=== PATIENT | male | born 1955 | race African-American/Black ===

== ENCOUNTER 2020-11-11 09:04 | Emergency (ER) | payer BC, SELFPAY ==
[2020-11-11] VITALS (27 sets, daily range): BP systolic 137–182; BP diastolic 94–121; PULSE 81–119; RESP 10–22; TEMP 37; O2SAT 82–100
--- NOTE | ~2020-11-11 | CT_ITS ---
EXAMINATION: CT abdomen pelvis wo con EXAM DATE: 11/11/2020 11:13 INDICATION: Small bowel obstruction. Nausea and vomiting. TECHNIQUE: Spiral CT of the abdomen and pelvis was performed without contrast. Axial, coronal and s agittal images of the abdomen and pelvis were reviewed. The dose-length product (DLP) for this exami nation was 505.87 mGy-cm. The exposure was tailored according to patient size (auto mA exposure cont rol), and iterative reconstruction (ASIR) was used as additional dose reduction technique. There is no prior study for comparison. FINDINGS: Mild nonspecific fat stranding surrounding the adrenal glands and kidneys. No nephrolithias is or hydronephrosis. There is a 1 cm left liver lobe cyst. The liver, spleen, adrenal glands and ruby creas are otherwise unremarkable. Gallbladder is unremarkable. No biliary obstruction. Prostate is moderately enlarged measuring 5.5 cm. Small bilateral inguinal fat-containing hernias. Tiny umbilical fat-containing hernia. The bladder is unremarkable. There is no retroperitoneal or pelvic lymphad enopathy. There is mild scattered arteriosclerotic disease. The appendix is normal. There is mild sigmoid colonic diverticulosis. There is no adjacent inflammat ory change to suggest diverticulitis. The stomach and small bowel are unremarkable. There is expect ed amount of colonic stool. No free intraperitoneal gas. The heart is normal in size. There are no pericardial or pleural effusions. Small amount of basilar intralobular septal thickening, possibl e mild interstitial lung disease. There is bibasilar linear subsegmental atelectasis. There are no o steoblastic or osteolytic lesions identified. IMPRESSION: 1. No acute intra-abdominal findings. 2. Mild nonspecific perirenal and periadrenal fat stranding. 3. Small fat-containing hernias. 4. Moderate prostatomegaly. 5. Possible mild interstitial lung disease. Reviewed, dictated and finalized at location A.
[2020-11-11 09:49] LABS: Basophils Percent Auto 0.3 % (0.2-1.2); Hematocrit 46.1 % (42.0-52.0); Hemoglobin 14.8 g/dL (14.0-18.0); Immature Granulocyte Absolute 0.03 K/mm3 (0.00-0.031); Immature Granulocyte Percent A 0.4 % (0-0.5); Immature Platelet Fraction Pct 9.5 % (0.9-11.2); Lymphocytes Absolute Auto 0.71 K/mm3 (0.9-3.2); Lymphocytes Percent Auto 9.6 % (18.3-44.2); Mean Corpuscular HGB Conc 32.1 g/dl (32-36); Mean Corpuscular Hemoglobin 21.1 pg (26-34); Mean Corpuscular Volume 65.6 fl (80-100); Monocytes Absolute Auto 0.6 K/mm3 (0.1-0.6); Monocytes Percent Auto 8.1 % (2.6-8.5); Neutrophils Percent Auto 81.6 % (45.5-73.1); Platelet Count Result 286 k/mm3 (150-375); Red Blood Count 7.03 M/mm3 (4.6-6.20); Red Cell Distribution Width 18.5 % (11.5-14.5); White Blood Count 7.4 K/mm3 (4.5-10.0)
[2020-11-11 10:02] LABS: Alanine Aminotransferase 20 U/L (4-50); Albumin Level 4.8 g/dL (3.5-5.1); Alkaline Phosphatase 83 U/L (38-126); Anion Gap 13 mmol/L (8-16); Aspartate Amino Transferase 21 U/L (17-59); Bilirubin,Total 0.9 mg/dL (0.2-1.3); Blood Urea Nitrogen 20 mg/dL (9-20); Calcium 9.1 mg/dL (8.4-10.2); Carbon Dioxide 26 mmol/L (22-30); Chloride 98 mmol/L (98-107); Estimated CRCL calculation 61 ml/min; Estimated Glomerular Filt Rate > 60; Glucose 220 mg/dL (75-110); Lipase 134 U/L (23-300); Potassium 3.2 mmol/L (3.4-5.0); Sodium 137 mmol/L (137-145)
[2020-11-11] MEDS: LABETALOL HCL INJ 100 MG/20 ML VIAL 20 MG IV PUSH ×2 (10:32→14:01)
[2020-11-11] MEDS: LACTATED RINGERS 1,000 ML 999 ML IV CONT (10:33)
[2020-11-11] MEDS: ONDANSETRON INJ 4 MG/2 ML VIAL (10:37)
[2020-11-11 11:05] LABS: Add Urine Microscopic? YES; Appearance Urine Clear (Clear); Bilirubin Urine Negative (Negative); Blood Urine 1+ (Negative); Color Urine Yellow (Yellow); Glucose Urine UA 3+ mg/dL (Negative); Ketones Urine 1+ mg/dL (Negative); Leukocyte Esterase Ur Negative LEU/UL (Negative); Mucus Urine Rare /lpf; Nitrate Urine Negative (Negative); Protein Urine 3+ mg/dL (Negative); Specific Grav Ur 1.021 (1.001-1.035); Squamous Epithelial Cell Urine Rare /hpf (Few); Urobilinogen Urine Negative mg/dL (<2.0)
--- NOTE | 2020-11-11 11:15 | ED.NAVMDI ---
HPI - Nausea/Vomiting/Diarrhea General Chief complaint: Nausea/Vomiting/Diarrhea Stated complaint: n/v Time Seen by Provider: 11/11/20 09:52 Source: patient Mode of arrival: ambulatory Limitations: no limitations History of Present Illness HPI Narrative: 65-year-old male Patient reports that he had upper and lower endoscopies elsewhere last week He says a colonoscopy was because of a possibly precancerous polyp that they were following up and it sounds like the upper was done because he just has occasional bloating and may be a sensitive stomach Following the procedures he complains of continued nausea, bloating, poor appetite, unable to keep his pills down Which unfortunately includes several antihypertensives including amlodipine hydralazine and losartan In talking with he and his daughter it sounds like his blood pressure control is somewhat of a ongoing work in progress with his primary as well Related Data Home Medications Medication Instructions Recorded Confirmed amlodipine 10 mg PO DAILY 11/11/20 11/11/20 carvedilol 25 mg PO DAILY 11/11/20 11/11/20 glipizide 5 mg PO BID 11/11/20 11/11/20 hydralazine 50 mg PO BID 11/11/20 11/11/20 losartan-hydrochlorothiazide 1 tablet PO DAILY 11/11/20 11/11/20 metformin 1,500 mg PO DAILY 11/11/20 11/11/20 Allergies Allergy/AdvReac Type Severity Reaction Status Date / Time No Known Allergies Allergy Verified 11/11/20 09:09 Review of Systems Review of Systems: All systems reviewed & are unremarkable except as noted in HPI and below Constitutional: Constitutional: Reports no additional constitutional complaints, Denies chills, Reports fatigue, Denies fever(s), Denies headache(s) and Reports weakness Eyes: Eyes: Reports no additional eye complaints, Denies change in vision and Reports photophobia ENT: Denies vertigo and Denies headache(s) Cardiovascular: Cardiovascular: Denies chest pain and Denies dyspnea Respiratory: Respiratory: Denies cough and Denies dyspnea Gastrointestinal: Gastrointestinal: Reports abdominal pain, Reports bloating, Denies diarrhea, Reports nausea and Reports vomiting Genitourinary: Genitourinary: Denies dysuria and Denies urinary frequency Musculoskeletal: Musculoskeletal: Reports myalgias, Denies deformity, Denies arthralgias, Denies joint swelling and Denies numbness Integumentary/Breasts: Skin/Breast: Denies rash and Denies wounds Neurologic: Denies headache(s), Denies focal weakness and Denies numbness Comments: Headache Psychiatric: Psychiatric: Reports no additional psychiatric complaints Endocrine: Endocrine: Reports no additional endocrine complaints Hematologic/Lymphatic: Hematologic/Lymphatic: Reports no additional hematologic/lymphatic complaints Allergic/Immunologic: Allergic/Immunologic: Reports no additional allergic/immunologic complaints [facility] Social History Social History Gender identity (if verbalized by the patient): Male Exam Const: General: cooperative, no acute distress and alert Orientation/consciousness: patient oriented x3 (alert) HENMT: Head: normal to inspection, normocephalic and atraumatic Ears: external ears normal General nose exam: no epistaxis Neck: Neck: normal visual inspection, supple and no JVD Other: Supple Resp: Effort & Inspection: normal respiratory effort and not labored Auscultation: clear to auscultation bilaterally and other (BS =) Cardio: Rate: regular rate Rhythm: regular rhythm Heart sounds: no murmurs GI: GI Palp: Yes Soft to palpation, No Guarding due to palpation present (GI), No Rigid due to palpation and No Rebound tenderness present Skin: General skin exam: normal color and no rashes or lesions noted Neuro: General: patient oriented x3 (alert) and moves all extremities Speech: normal speech Extrem: General: normal to inspection and no pedal edema Psych: Affect: normal affect Course Course Emergency Course
--- NOTE | 2020-11-11 11:20 | ECG_ITS ---
Measurements Intervals [place] Rate: 87 P: 50 [place]: 156 QRS: 54 QRSD: 94 T: -5 QT: 347 QTc: 418 Interpretive Statements SINUS RHYTHM WITH MARKED SINUS ARRHYTHMIA BORDERLINE ST-T WAVE ABNORMALITY- ANT/INF LEADS BORDERLINE ECG Electronically Signed On 11-11-2020 14:30:32 CDT by Toni Lee D.O.
[2020-11-11] MEDS: hydrALAZINE HCL 20 MG/ML VIAL 10 MG IV PUSH ×2 (11:43→15:49)
[2020-11-11] MEDS: amLODIPine BESYLATE 5 MG TABLET 10 MG PO (11:43)
[2020-11-11] MEDS: ENALAPRILAT 1.25 MG/ML VIAL IV PUSH (12:43)
[2020-11-11 13:12] LABS: Troponin I < 0.012 ng/mL (0.000-0.034)
[2020-11-11 13:30] LABS: Troponin I < 0.012 ng/mL (0.000-0.034)
[2020-11-11] MEDS: PROCHLORPERAZINE EDISYLATE 10 MG/2 ML VIAL IV PUSH (15:49)
[2020-11-11] MEDS: POTASSIUM CHLORIDE 20 MEQ TABLET 40 MEQ PO (16:29)
[2020-11-11] MEDS: LABETALOL HCL INJ 100 MG/20 ML VIAL 40 MG IV PUSH (16:47)
== END 2020-11-11 17:00 | disposition home or self-care (01) ==
PROVIDERS: Emergency Provider Emergency Medicine; PCP Family Medicine
DX: R11.2 Nausea with vomiting, unspecified (principal); I10 Essential (primary) hypertension; Z79.84 Long term (current) use of oral hypoglycemic drugs
CPT/HCPCS: 36415; 74176; 80053; 81001; 83690; 84484; 85025; 85055; 93005; 96361; 96374; 96375; 96376; 99284; A9270; J0360; J0780; J2405; J7120

== ENCOUNTER 2021-10-02 15:40 | Outpatient (CLI) | payer OTHER, SELFPAY ==
--- NOTE | ~2021-10-02 | US_ITS ---
EXAMINATION: US renal BI EXAM DATE: 10/02/2021 16:21 INDICATION: Serum Creatinine Abnormal . TECHNIQUE: Multiple grayscale and Doppler images of the kidneys were obtained (by a technologist who performed the scan) and subsequently reviewed. There is no prior study for comparison. FINDINGS: Right kidney: There is normal contour and echogenicity. It measures 10.2 x 5.1 x 5.8 centimeters. T here are no focal renal lesions identified. There is no hydronephrosis. Left kidney: There is normal contour and echogenicity. It measures 11.2 x 4.9 x 5.1 centimeters. Th ere are no focal renal lesions identified. There is no hydronephrosis. Bladder unremarkable. There is prostatomegaly, prostate measuring up to 5.8 cm. IMPRESSION: 1. Sonographically unremarkable kidneys. 2. Moderate prostatomegaly. Reviewed, dictated and finalized at location B. ER MANAGER
== END 2021-10-02 15:41 | disposition home or self-care (01) ==
LOC: ANHIMG 15:53
PROVIDERS: PCP Family Medicine; Visit Provider Internal Medicine Nephrology
DX: R79.89 Other specified abnormal findings of blood chemistry (principal); R80.8 Other proteinuria; N40.0 Benign prostatic hyperplasia without lower urinary tract symptoms
CPT/HCPCS: 76775

== ENCOUNTER 2022-05-21 09:44 | Outpatient (CLI) | payer OTHER, SELFPAY ==
[2022-05-21 18:44] LABS: Alanine Aminotransferase 16 U/L (6-50); Albumin Level 4.7 g/dL (3.5-5.1); Alkaline Phosphatase 63 U/L (38-126); Anion Gap 13 mmol/L (8-16); Aspartate Amino Transferase 16 U/L (17-59); Basophils Absolute Auto 0.1 K/mm3 (0.0-0.1); Basophils Percent Auto 1.3 % (0.2-1.2); Bilirubin,Total 0.7 mg/dL (0.2-1.3); Blood Urea Nitrogen 24 mg/dL (9-20); Calcium 9.6 mg/dL (8.4-10.2); Carbon Dioxide 24 mmol/L (22-30); Chloride 106 mmol/L (98-107); Eosinophils Absolute Auto 0.4 K/mm3 (0-0.3); Eosinophils Percent Auto 6.4 % (0-4.4); Estimated Glomerular Filt Rate 46; Glucose 157 mg/dL (65-110); Hematocrit 42.6 % (42.0-52.0); Hemoglobin 12.7 g/dL (14.0-18.0); Immature Granulocyte Absolute 0.02 K/mm3 (0.00-0.031); Immature Granulocyte Percent A 0.3 % (0-0.5); Lymphocytes Absolute Auto 1.16 K/mm3 (0.9-3.2); Lymphocytes Percent Auto 17.2 % (18.3-44.2); Mean Corpuscular HGB Conc 29.8 g/dl (32-36); Mean Corpuscular Hemoglobin 20.7 pg (26-34); Mean Corpuscular Volume 69.5 fl (80-100); Mean Platelet Volume 10.8 fl (7.4-10.4); Monocytes Absolute Auto 0.7 K/mm3 (0.1-0.6); Monocytes Percent Auto 9.8 % (2.6-8.5); Neutrophils Absolute Auto 4.4 K/mm3 (1.3-6.7); Platelet Count Result 264 k/mm3 (150-375); Potassium 3.8 mmol/L (3.4-5.0); Red Blood Count 6.13 M/mm3 (4.6-6.20); Red Cell Distribution Width 19.6 % (11.5-14.5); Sodium 143 mmol/L (137-145); White Blood Count 6.8 K/mm3 (4.5-10.0)
[2022-05-21 19:02] LABS: Vitamin D 25 Hydroxy 90.5 ng/mL
[2022-05-21 20:00] LABS: Hypochromasia 1+ (NORMAL); Platelet Estimate Adequate (Adequate)
[2022-05-21 20:01] LABS: Anisocytosis 2+ (NORMAL)
[2022-05-21 20:02] LABS: Schistocytes None Seen (NORMAL)
[2022-05-22 14:27] LABS: Hemoglobin A1C 7.2 % (<5.7)
== END 2022-05-21 09:45 | disposition home or self-care (01) ==
LOC: ANHGOSHLAB 09:47
PROVIDERS: PCP Family Medicine; Visit Provider Family Medicine
DX: E11.9 Type 2 diabetes mellitus without complications (principal); E55.9 Vitamin D deficiency, unspecified; E53.8 Deficiency of other specified B group vitamins; Z79.899 Other long term (current) drug therapy; N18.30 Chronic kidney disease, stage 3 unspecified; I10 Essential (primary) hypertension; D64.9 Anemia, unspecified
CPT/HCPCS: 36415; 80053; 82306; 82607; 83036; 85025; 85055

== ENCOUNTER → 2022-05-21 10:07 | Outpatient (CLI) | payer OTHER, SELFPAY ==
--- NOTE | ~2022-05-21 | US_ITS ---
EXAMINATION: US thyroid DATE: 05/21/2022 10:21 INDICATION: Nontoxic single thyroid nodule. Goiter. TECHNIQUE: Multiple ultrasound images of the thyroid were obtained. COMPARISON: Chest CT 09/19/2008 FINDINGS: The right thyroid lobe measures 4.3 x 1.6 x 1.5 cm. The left thyroid lobe measures 4.1 x 1.6 x 1.5 c m. In the right thyroid lobe, there is a 19 mm solid, hypoechoic, wider than tall nodule with smooth margin without echogenic foci (TI-RADS TR4). IMPRESSION: 1. Right thyroid nodule. Ultrasound-guided fine-needle aspiration is recommended. Reviewed, dictated and finalized at location B. IMPRESSION: 1. Right thyroid nodule. Ultrasound-guided fine-needle aspiration is recommende d.
== END ==
PROVIDERS: PCP Family Medicine; Visit Provider Family Medicine
DX: E04.1 Nontoxic single thyroid nodule (principal)
CPT/HCPCS: 76536

== ENCOUNTER 2022-08-12 11:11 | Outpatient (CLI) | payer OTHER, SELFPAY ==
[2022-08-12 16:58] LABS: Total Protein Urine Random 30 mg/dL
[2022-08-12 17:29] LABS: Albumin Level 4.6 g/dL (3.5-5.1); Anion Gap 9 mmol/L (8-16); Blood Urea Nitrogen 26 mg/dL (9-20); Carbon Dioxide 25 mmol/L (22-30); Chloride 101 mmol/L (98-107); Estimated Glomerular Filt Rate 46; Glucose 175 mg/dL (65-110); Phosphorus 3.8 mg/dL (2.5-4.5); Potassium 3.6 mmol/L (3.4-5.0); Sodium 135 mmol/L (137-145)
== END 2022-08-12 11:12 | disposition home or self-care (01) ==
LOC: ANHWCLAB 11:12
PROVIDERS: PCP Family Medicine; Visit Provider Internal Medicine Nephrology
DX: N18.32 Chronic kidney disease, stage 3b (principal); I12.9 Hypertensive chronic kidney disease with stage 1 through stage 4 chronic kidney disease, or unspecified chronic kidney disease; E11.22 Type 2 diabetes mellitus with diabetic chronic kidney disease; R80.9 Proteinuria, unspecified
CPT/HCPCS: 36415; 80069; 81050; 84156

== ENCOUNTER 2022-11-24 10:39 | Outpatient (CLI) | payer OTHER, SELFPAY ==
[2022-11-24 18:48] LABS: Alanine Aminotransferase 19 U/L (6-50); Albumin Level 4.8 g/dL (3.5-5.1); Alkaline Phosphatase 71 U/L (38-126); Anion Gap 10 mmol/L (8-16); Aspartate Amino Transferase 37 U/L (17-59); Blood Urea Nitrogen 25 mg/dL (9-20); Calcium 9.6 mg/dL (8.4-10.2); Carbon Dioxide 29 mmol/L (22-30); Chloride 102 mmol/L (98-107); Cholesterol 207 mg/dL (0-200); Estimated Glomerular Filt Rate 43; Glucose 117 mg/dL (65-110); HDL Direct 35 mg/dL; Potassium 3.8 mmol/L (3.4-5.0); Sodium 141 mmol/L (137-145); Triglycerides 137 mg/dL (<150)
[2022-11-24 18:59] LABS: LDL Cholesterol Direct 128 mg/dL
[2022-11-24 19:17] LABS: Prostate Specific Antigen 2.2 ng/mL (< OR = 4.0)
[2022-11-24 19:25] LABS: Vitamin D 25 Hydroxy 73.5 ng/mL
[2022-11-24 19:31] LABS: Basophils Absolute Auto 0.1 K/mm3 (0.0-0.1); Basophils Percent Auto 1.3 % (0.2-1.2); Eosinophils Absolute Auto 0.5 K/mm3 (0-0.3); Hematocrit 45.4 % (42.0-52.0); Hemoglobin 13.8 g/dL (14.0-18.0); Immature Granulocyte Absolute 0.02 K/mm3 (0.00-0.031); Immature Granulocyte Percent A 0.3 % (0-0.5); Immature Platelet Fraction Pct 11.2 % (0.9-11.2); Lymphocytes Absolute Auto 1.15 K/mm3 (0.9-3.2); Lymphocytes Percent Auto 17.2 % (18.3-44.2); Mean Corpuscular HGB Conc 30.4 g/dl (32-36); Mean Corpuscular Volume 69.2 fl (80-100); Monocytes Absolute Auto 0.9 K/mm3 (0.1-0.6); Neutrophils Absolute Auto 4.1 K/mm3 (1.3-6.7); Neutrophils Percent Auto 61.2 % (45.5-73.1); Platelet Count Result 264 k/mm3 (150-375); Red Blood Count 6.56 M/mm3 (4.6-6.20); Red Cell Distribution Width 20.9 % (11.5-14.5); White Blood Count 6.7 K/mm3 (4.5-10.0)
[2022-11-24 19:38] LABS: Creatinine Urine 176.4 mg/dL
[2022-11-24 19:41] LABS: Microalbumin Urine Random 153.4 mg/L (0-16.7)
[2022-11-24 20:10] LABS: Hemoglobin A1C 6.9 % (<5.7)
[2022-11-24 20:31] LABS: Platelet Estimate Adequate (Adequate)
[2022-11-24 20:32] LABS: Hypochromasia 1+ (NORMAL); Ovalocytes 1+ (NORMAL); Schistocytes None Seen (NORMAL); Target Cells 1+ (NORMAL)
== END 2022-11-24 10:40 | disposition home or self-care (01) ==
LOC: ANHGOSHLAB 10:40
PROVIDERS: PCP Family Medicine; Visit Provider Family Medicine
DX: E78.5 Hyperlipidemia, unspecified (principal); G25.2 Other specified forms of tremor; E04.1 Nontoxic single thyroid nodule; Z12.5 Encounter for screening for malignant neoplasm of prostate; E55.9 Vitamin D deficiency, unspecified; E53.8 Deficiency of other specified B group vitamins; E11.9 Type 2 diabetes mellitus without complications; I10 Essential (primary) hypertension
CPT/HCPCS: 36415; 80053; 80061; 82043; 82306; 82607; 83036; 84153; 84443; 85025; 85055; G0103

== ENCOUNTER 2022-12-11 10:26 | Emergency (ER) | payer OTHER, SELFPAY ==
[2022-12-11] VITALS (25 sets, daily range): BP systolic 126–172; BP diastolic 92–101; PULSE 71–84; RESP 13–23; TEMP 36.6; O2SAT 95–100
--- NOTE | ~2022-12-11 | XR_ITS ---
EXAMINATION: XR chest 2V 12/11/2022 11:06 INDICATION: Chest tightness PROCEDURE: 2 view chest COMPARISON: 09/18/2015 FINDINGS: The lungs are clear. The cardiomediastinal silhouette is within normal limits. There are no pleural effusions. There is no pneumothorax suspected. IMPRESSION: 1: NO ACUTE CARDIOPULMONARY DISEASE. Reviewed, dictated and finalized at location L.
--- NOTE | ~2022-12-11 | CT_ITS ---
EXAMINATION: CTA chest PE protocol DATE: 12/11/2022 12:19 CDT INDICATION: CT dated 09/19/2008 TECHNIQUE: Computed tomographic angiography (CTA) of the chest was performed with 100 mL Omnipaque-35 0 intravenous contrast. The dose-length product was 594.39 mGy-cm. Maximum intensity projection 3D-re constructions of the aorta and other arteries were constructed by the technologist on a separate work station. Automated exposure control and iterative reconstruction technique were employed. COMPARISON: CT dated 09/19/2008. FINDINGS: Study is technically adequate without evidence for pulmonary embolism. No thoracic lymphade nopathy. There is a hypodense 2.4 cm right thyroid mass. Recommend correlation with ultrasound. There are calcified granulomas of the spleen. No significant pleural or pericardial effusion. There is nisha ateral adrenal thickening, likely benign hyperplasia. No endobronchial lesions. There is dependent at electasis. There is bandlike consolidation in the right lower lobe, most likely atelectasis. There is lingular atelectasis. No pneumothorax. Mild thoracic spondylosis. IMPRESSION: 1. No evidence for pulmonary embolism. 2: Right lower lobe and lingular atelectasis. 3: Right thyroid mass measuring 2.4 cm. Correlation with thyroid ultrasound recommended. Reviewed, dictated and finalized at location L. IMPRESSION: 1. No evidence for pulmonary embolism. 2: Right lower lobe and lingular atelectasis. 3: Right thyroid mass measuring 2.4 cm. Correlation with thyroid ultrasound rec ommended.
--- NOTE | 2022-12-11 10:28 | ECG_ITS ---
Measurements Intervals [place] Rate: 73 P: 12 MS: 135 QRS: 23 QRSD: 88 T: 6 QT: 365 QTc: 403 Interpretive Statements SINUS RHYTHM BORDERLINE T WAVE ABNORMALITY- INFERIOR LEADS BASELINE ARTIFACT- I, II, III, AVR BORDERLINE ECG COMPARED TO ECG 11/11/2020 11:54:06 NO SIGNIFICANT CHANGES Electronically Signed On 12-11-2022 11:19:45 CDT by Toni Lee D.O.
--- NOTE | 2022-12-11 10:41 | ED.CHESTPAIN ---
HPI - Chest Pain General Chief Complaint: Chest Pain Stated Complaint: near syncope, chest pain Time Seen by Provider: 12/11/22 10:40 Source: patient and old records reviewed Mode of arrival: ambulatory Limitations: no limitations History of Present Illness HPI narrative: Patient is a 67 y/o male who presents to the ED with c/o chest tightness. Patient reports having upper respiratory symptoms including cough, chest and nasal congestion, rhinorrhea, sneezing for the last 4 days. He states he has had intermittent chest tightness related to the chest congestion over the last few days. He went to see his primary care doctor today and reports he suddenly became very fatigued, clammy, flushed, diaphoretic. He states he laid down on the table in the office and began to feel better after approximately 15 minutes. He did report having worsening chest tightness during that time, which is still present. EKG was read in the office and no signs of STEMI. Patient denied feeling dizzy or lightheaded at that time. He did not pass out. Denied nausea or difficulty breathing. He was then referred to the ED for further evaluation. Patient denies any recent fevers, abdominal pain, difficulty breathing, lower extremity pain or swelling. Related Data Allergies Allergy/AdvReac Type Severity Reaction Status Date / Time No Known Allergies Allergy Verified 12/11/22 09:30 Review of Systems Review of Systems: CONSTITUTIONAL: Denies fever, chills, or sweats. ENT: See HPI. CARDIOVASCULAR: See HPI. RESPIRATORY: See HPI. GASTROINTESTINAL: Denies abdominal pain, nausea, vomiting, or diarrhea. GENITOURINARY: Denies dysuria or hematuria. MUSCULOSKELETAL: Denies back pain, joint pain, or myalgia. NEUROLOGIC: See HPI. All systems reviewed & are unremarkable except as noted in HPI and below PMFSH Past Medical History Medical History CKD (chronic kidney disease) stage 3, GFR 30-59 ml/min Erectile dysfunction Essential (primary) hypertension Intention tremor Type 2 diabetes mellitus without complications Vitamin B12 deficiency Vitamin D deficiency Surgical History Surgical History No pertinent past surgical history Family History Family History Mother Hypertension Heart disease Sibling Diabetes mellitus Social History Social History Smoking status: Current some day smoker Tobacco type: cigars (2/month) Alcohol intake: current Alcohol use details: occasionnally Substance use: never Substance use type: does not use Lack of Transportation: No Lack of Food: Sometimes True Current Housing: I Have Housing Concerned About Future Housing: No Difficulty Paying Gas/Electric Bills: No Difficulty Paying for Meds: YES Currently Unemployed: No Education: High School Diploma/GED Difficulty w/ Childcare or Family Care: No Living arrangements: with family Occupation/Education: retired Gender identity (if verbalized by the patient): Male Sexual Orientation (if Verbalized by the Patient): Straight or Heterosexual Spiritual care concerns: No Agree to blood products: Yes Exam Narrative: GENERAL: Well appearing, well-nourished, non-toxic, in no acute distress. HEAD: Normocephalic, atraumatic. EYES: PERRLA/EOMI, conjunctiva clear. ENT: MMs somewhat dry. Nasal quality to voice. NECK: Supple. No adenopathy, no masses. RESPIRATORY: Airway patent, respirations nonlabored. Clear to auscultation bilaterally, no rales, rhonchi, wheezing. Coarse lung sounds in bases bilaterally, equal bilaterally, no focal lung sounds. CARDIOVASCULAR: Regular rate and rhythm without murmurs, rubs, or gallops. Radial pulses 2+ and equal bilaterally. ABDOMINAL: Soft, nontender, nondistended, no hepatosplenom
[2022-12-11 10:57] LABS: Basophils Absolute Auto 0.1 K/mm3 (0.0-0.1); Eosinophils Absolute Auto 0.5 K/mm3 (0-0.3); Eosinophils Percent Auto 9.1 % (0-4.4); Hematocrit 43.8 % (42.0-52.0); Hemoglobin 13.6 g/dL (14.0-18.0); Immature Granulocyte Absolute 0.01 K/mm3 (0.00-0.031); Immature Granulocyte Percent A 0.2 % (0-0.5); Immature Platelet Fraction Pct 7.9 % (0.9-11.2); Lymphocytes Absolute Auto 0.98 K/mm3 (0.9-3.2); Lymphocytes Percent Auto 19.5 % (18.3-44.2); Mean Corpuscular HGB Conc 31.1 g/dl (32-36); Mean Corpuscular Hemoglobin 21.2 pg (26-34); Mean Corpuscular Volume 68.3 fl (80-100); Monocytes Absolute Auto 0.8 K/mm3 (0.1-0.6); Monocytes Percent Auto 15.7 % (2.6-8.5); Neutrophils Absolute Auto 2.7 K/mm3 (1.3-6.7); Neutrophils Percent Auto 54.5 % (45.5-73.1); Platelet Count Result 224 k/mm3 (150-375); Red Blood Count 6.41 M/mm3 (4.6-6.20); Red Cell Distribution Width 19.8 % (11.5-14.5)
[2022-12-11 11:04] LABS: Alanine Aminotransferase 20 U/L (6-50); Albumin Level 4.8 g/dL (3.5-5.1); Alkaline Phosphatase 72 U/L (38-126); Anion Gap 8 mmol/L (8-16); Aspartate Amino Transferase 24 U/L (17-59); Bilirubin,Total 0.9 mg/dL (0.2-1.3); Blood Urea Nitrogen 20 mg/dL (9-20); Calcium 9.4 mg/dL (8.4-10.2); Carbon Dioxide 29 mmol/L (22-30); Chloride 102 mmol/L (98-107); Estimated CRCL calculation 42 ml/min; Estimated Glomerular Filt Rate 49; Glucose 181 mg/dL (65-110); Lipase 139 U/L (23-300); Sodium 139 mmol/L (137-145)
[2022-12-11 11:08] LABS: INR 0.9; Partial Thromboplastin Time 27.1 SECONDS (22.3-36.8); Prothrombin Time 12.8 Seconds (11.1-14.7)
[2022-12-11 11:15] LABS: Troponin I < 0.012 ng/mL (0.000-0.034)
[2022-12-11 11:28] LABS: Influenza A QL RT-PCR Negative (Negative); Influenza B QL RT-PCR Negative (Negative); RSV RNA, RT-PCR Negative (Negative); SARS-CoV-2 RNA PCR Negative (Negative)
[2022-12-11 11:31] LABS: Anisocytosis 1+ (NORMAL); Platelet Estimate Adequate (Adequate); Target Cells 1+ (NORMAL)
[2022-12-11 11:32] LABS: Schistocytes None Seen (NORMAL)
[2022-12-11] MEDS: SODIUM CHLORIDE 0.9% IV 1,000 ML 999 ML IV CONT (11:40)
[2022-12-11] MEDS: ASPIRIN 81 MG CHEWABLE TABLET 324 MG PO (11:40)
[2022-12-11 11:58] LABS: D Dimer 1.39 ug/mL (<0.48)
[2022-12-11 14:32] LABS: Troponin I < 0.012 ng/mL (0.000-0.034)
== END 2022-12-11 16:24 | disposition home or self-care (01) ==
PROVIDERS: Emergency Medicine; Emergency Provider Physician Assistant; PCP Family Medicine
DX: J06.9 Acute upper respiratory infection, unspecified (principal); R55 Syncope and collapse; R07.9 Chest pain, unspecified; I12.9 Hypertensive chronic kidney disease with stage 1 through stage 4 chronic kidney disease, or unspecified chronic kidney disease; E11.22 Type 2 diabetes mellitus with diabetic chronic kidney disease; N18.30 Chronic kidney disease, stage 3 unspecified; F17.290 Nicotine dependence, other tobacco product, uncomplicated; Z20.822 Contact with and (suspected) exposure to COVID-19
CPT/HCPCS: 36415; 71046; 71275; 80053; 83690; 84484; 85025; 85055; 85380; 85610; 85730; 87637; 93005; 96360; 99284; A9270; J7030; Q9967

== ENCOUNTER 2022-12-17 12:39 | Outpatient (CLI) | payer OTHER, SELFPAY ==
--- NOTE | ~2022-12-17 | US_ITS ---
EXAMINATION: US FNA w image guidance DATE: 12/17/2022 13:25 INDICATION: Right thyroid nodule. TECHNIQUE: The procedure and its benefits and risks were discussed with the patient. Risks specifically discusse d included bleeding. The patient verbalized understanding of the risks and agreed to proceed. The nec k was prepped and draped in the usual sterile manner. 1% lidocaine was used for local anesthesia. 6 passes were made with a 25G needle into the lesion under ultrasound guidance. There were no immedia te complications. FINDINGS: Grayscale ultrasound images demonstrate needles advanced into a 1.9 cm nodule in right thyroid lobe f or biopsy. IMPRESSION: 1. Ultrasound-guided fine needle aspiration of a right thyroid nodule. Reviewed, dictated and finalized at location A.
== END 2022-12-17 12:40 | disposition home or self-care (01) ==
PROVIDERS: PCP Family Medicine; Visit Provider Family Medicine
DX: E04.1 Nontoxic single thyroid nodule (principal)
CPT/HCPCS: 10005; 88173; 88305

== ENCOUNTER 2023-04-16 08:33 | Outpatient (CLI) | payer OTHER, SELFPAY ==
[2023-04-16 11:55] LABS: Albumin Level 4.3 g/dL (3.5-5.1); Anion Gap 9 mmol/L (8-16); Blood Urea Nitrogen 25 mg/dL (9-20); Calcium 9.2 mg/dL (8.4-10.2); Carbon Dioxide 28 mmol/L (22-30); Chloride 104 mmol/L (98-107); Estimated Glomerular Filt Rate 46; Glucose 144 mg/dL (65-110); Phosphorus 3.4 mg/dL (2.5-4.5); Potassium 3.9 mmol/L (3.4-5.0); Sodium 141 mmol/L (137-145)
[2023-04-16 11:57] LABS: Parathyroid Intact 102.1 pg/mL (7.5-53.5)
[2023-04-16 14:29] LABS: Vitamin D 25 Hydroxy 78.2 ng/mL
[2023-04-16 15:48] LABS: Creatinine Urine 131.2 mg/dL; Total Protein Urine Random 41 mg/dL; Ur Ttl Prot Creatinine Ratio 0.31 mg/mg (0-0.20)
== END 2023-04-16 08:34 | disposition home or self-care (01) ==
PROVIDERS: PCP Family Medicine; Visit Provider Internal Medicine Nephrology
DX: E11.22 Type 2 diabetes mellitus with diabetic chronic kidney disease (principal); N18.32 Chronic kidney disease, stage 3b; I12.9 Hypertensive chronic kidney disease with stage 1 through stage 4 chronic kidney disease, or unspecified chronic kidney disease; N25.81 Secondary hyperparathyroidism of renal origin; E55.9 Vitamin D deficiency, unspecified
CPT/HCPCS: 36415; 80069; 82306; 82570; 83970; 84156

== ENCOUNTER 2023-06-01 11:49 | Outpatient (CLI) | payer OTHER, SELFPAY ==
[2023-06-01 13:09] LABS: Albumin Level 4.6 g/dL (3.5-5.1); Anion Gap 10 mmol/L (8-16); Blood Urea Nitrogen 21 mg/dL (9-20); Calcium 9.5 mg/dL (8.4-10.2); Carbon Dioxide 27 mmol/L (22-30); Chloride 104 mmol/L (98-107); Estimated Glomerular Filt Rate 53; Glucose 127 mg/dL (65-110); Phosphorus 3.5 mg/dL (2.5-4.5); Potassium 3.2 mmol/L (3.4-5.0); Sodium 141 mmol/L (137-145)
[2023-06-01 13:24] LABS: Total Protein Urine Random 73 mg/dL; Ur Ttl Prot Creatinine Ratio 0.63 mg/mg (0-0.20)
== END 2023-06-01 11:50 | disposition home or self-care (01) ==
PROVIDERS: PCP Family Medicine; Visit Provider Internal Medicine Nephrology
DX: R80.9 Proteinuria, unspecified (principal); I12.9 Hypertensive chronic kidney disease with stage 1 through stage 4 chronic kidney disease, or unspecified chronic kidney disease; N18.31 Chronic kidney disease, stage 3a; E11.22 Type 2 diabetes mellitus with diabetic chronic kidney disease
CPT/HCPCS: 36415; 80069; 82570; 84156

== ENCOUNTER 2023-08-13 12:43 | Outpatient (CLI) | payer OTHER, SELFPAY ==
[2023-08-13 15:32] LABS: Alanine Aminotransferase 15 U/L (6-50); Albumin Level 4.2 g/dL (3.5-5.1); Alkaline Phosphatase 63 U/L (38-126); Anion Gap 9 mmol/L (8-16); Aspartate Amino Transferase 19 U/L (17-59); Bilirubin,Total 0.5 mg/dL (0.2-1.3); Blood Urea Nitrogen 27 mg/dL (9-20); Calcium 9.6 mg/dL (8.4-10.2); Carbon Dioxide 26 mmol/L (22-30); Chloride 105 mmol/L (98-107); Estimated Glomerular Filt Rate 57; Glucose 184 mg/dL (65-110); Potassium 3.7 mmol/L (3.4-5.0); Sodium 140 mmol/L (137-145)
[2023-08-13 15:34] LABS: Albumin Level 4.2 g/dL (3.5-5.1); Anion Gap 10 mmol/L (8-16); Blood Urea Nitrogen 27 mg/dL (9-20); Calcium 9.7 mg/dL (8.4-10.2); Carbon Dioxide 26 mmol/L (22-30); Chloride 104 mmol/L (98-107); Estimated Glomerular Filt Rate 57; Glucose 185 mg/dL (65-110); Phosphorus 2.9 mg/dL (2.5-4.5); Potassium 3.7 mmol/L (3.4-5.0); Sodium 140 mmol/L (137-145)
[2023-08-13 17:41] LABS: Creatinine Urine 206.9 mg/dL; Total Protein Urine Random 88 mg/dL; Ur Ttl Prot Creatinine Ratio 0.43 mg/mg (0-0.20)
[2023-08-13 19:53] LABS: Hemoglobin A1C 8.6 % (<5.7)
== END 2023-08-13 12:44 | disposition home or self-care (01) ==
PROVIDERS: PCP Family Medicine; Visit Provider Internal Medicine Nephrology
DX: I12.9 Hypertensive chronic kidney disease with stage 1 through stage 4 chronic kidney disease, or unspecified chronic kidney disease (principal); N18.32 Chronic kidney disease, stage 3b; E11.22 Type 2 diabetes mellitus with diabetic chronic kidney disease; E87.6 Hypokalemia
CPT/HCPCS: 36415; 80053; 80069; 82570; 83036; 84156

== ENCOUNTER 2023-12-03 09:01 | Outpatient (CLI) | payer OTHER, SELFPAY ==
[2023-12-03 19:09] LABS: Hemoglobin 13.1 g/dL (14.0-18.0); Immature Platelet Fraction Pct 7.6 % (0.9-11.2); Mean Corpuscular HGB Conc 31.2 g/dl (32-36); Mean Corpuscular Hemoglobin 20.8 pg (26-34); Mean Corpuscular Volume 66.8 fl (80-100); Platelet Count Result 232 k/mm3 (150-375); Red Blood Count 6.29 M/mm3 (4.6-6.20); Red Cell Distribution Width 19.1 % (11.5-14.5); White Blood Count 6.8 K/mm3 (4.5-10.0)
[2023-12-03 19:18] LABS: Alanine Aminotransferase 13 U/L (6-50); Albumin Level 4.5 g/dL (3.5-5.1); Alkaline Phosphatase 74 U/L (38-126); Anion Gap 13 mmol/L (4-12); Aspartate Amino Transferase 16 U/L (17-59); Bilirubin,Total 0.8 mg/dL (0.2-1.3); Blood Urea Nitrogen 31 mg/dL (9-20); Calcium 9.5 mg/dL (8.4-10.2); Carbon Dioxide 20 mmol/L (22-30); Chloride 107 mmol/L (98-107); Cholesterol 178 mg/dL (0-200); Estimated Glomerular Filt Rate 43; Glucose 160 mg/dL (65-110); HDL Direct 35 mg/dL; Potassium 3.2 mmol/L (3.4-5.0); Sodium 140 mmol/L (137-145); Triglycerides 103 mg/dL (<150)
[2023-12-03 19:29] LABS: LDL Cholesterol Direct 112 mg/dL
[2023-12-03 19:44] LABS: Creatinine Urine 124.9 mg/dL
[2023-12-03 19:50] LABS: Prostate Specific Antigen 1.6 ng/mL (< OR = 4.0)
[2023-12-03 20:00] LABS: MALB Creatinine Ratio 231.5 mg/g (0-30); Microalbumin Urine Random 289.1 mg/L (0-16.7)
[2023-12-03 20:26] LABS: Vitamin D 25 Hydroxy 57.5 ng/mL
[2023-12-03 20:50] LABS: Hemoglobin A1C 7.2 % (<5.7)
[2023-12-03 20:56] LABS: Hepatitis C Virus Antibody Negative (Negative)
== END 2023-12-03 09:02 | disposition home or self-care (01) ==
PROVIDERS: PCP Family Medicine; Visit Provider Nurse Practitioner
DX: Z12.5 Encounter for screening for malignant neoplasm of prostate (principal); E53.8 Deficiency of other specified B group vitamins; E11.22 Type 2 diabetes mellitus with diabetic chronic kidney disease; E78.5 Hyperlipidemia, unspecified; E55.9 Vitamin D deficiency, unspecified; Z11.59 Encounter for screening for other viral diseases
CPT/HCPCS: 36415; 80053; 80061; 82043; 82306; 82607; 83036; 84153; 85027; 85055; 86803; G0103

== ENCOUNTER 2023-12-21 09:52 | Outpatient (CLI) | payer OTHER, SELFPAY ==
[2023-12-21 13:40] LABS: Albumin Level 4.5 g/dL (3.5-5.1); Anion Gap 10 mmol/L (4-12); Blood Urea Nitrogen 30 mg/dL (9-20); Calcium 9.2 mg/dL (8.4-10.2); Carbon Dioxide 24 mmol/L (22-30); Chloride 106 mmol/L (98-107); Estimated Glomerular Filt Rate 41; Glucose 157 mg/dL (65-110); Potassium 3.2 mmol/L (3.4-5.0); Sodium 140 mmol/L (137-145)
[2023-12-21 13:44] LABS: Creatinine Urine 115.4 mg/dL; Total Protein Urine Random 39 mg/dL; Ur Ttl Prot Creatinine Ratio 0.34 mg/mg (0-0.20)
[2023-12-21 13:46] LABS: Parathyroid Intact 74.7 pg/mL (7.5-53.5)
[2023-12-21 13:47] LABS: Vitamin D 25 Hydroxy 55.6 ng/mL
== END 2023-12-21 09:53 | disposition home or self-care (01) ==
LOC: ANHGOSHLAB 09:54
PROVIDERS: PCP Family Medicine; Visit Provider Internal Medicine Nephrology
DX: I12.9 Hypertensive chronic kidney disease with stage 1 through stage 4 chronic kidney disease, or unspecified chronic kidney disease (principal); E55.9 Vitamin D deficiency, unspecified; E11.22 Type 2 diabetes mellitus with diabetic chronic kidney disease; N25.81 Secondary hyperparathyroidism of renal origin; R80.9 Proteinuria, unspecified; N18.31 Chronic kidney disease, stage 3a
CPT/HCPCS: 36415; 80069; 82306; 82570; 83970; 84156

== ENCOUNTER 2024-04-18 09:49 | Outpatient (CLI) | payer OTHER, SELFPAY ==
[2024-04-18 13:04] LABS: Albumin Level 4.3 g/dL (3.5-5.1); Anion Gap 6 mmol/L (4-12); Blood Urea Nitrogen 23 mg/dL (9-20); Calcium 9.2 mg/dL (8.4-10.2); Carbon Dioxide 28 mmol/L (22-30); Chloride 102 mmol/L (98-107); Estimated Glomerular Filt Rate 53; Glucose 114 mg/dL (65-110); Phosphorus 3.3 mg/dL (2.5-4.5); Potassium 3.7 mmol/L (3.4-5.0); Sodium 136 mmol/L (137-145)
[2024-04-18 13:44] LABS: Creatinine Urine 87.1 mg/dL; Total Protein Urine Random 98 mg/dL; Ur Ttl Prot Creatinine Ratio 1.13 mg/mg (0-0.20)
== END 2024-04-18 09:50 | disposition home or self-care (01) ==
LOC: ANHGOSHLAB 09:51
PROVIDERS: PCP Family Medicine; Visit Provider Internal Medicine Nephrology
DX: E11.22 Type 2 diabetes mellitus with diabetic chronic kidney disease (principal); I12.9 Hypertensive chronic kidney disease with stage 1 through stage 4 chronic kidney disease, or unspecified chronic kidney disease; N18.32 Chronic kidney disease, stage 3b; R80.9 Proteinuria, unspecified
CPT/HCPCS: 36415; 80069; 82570; 84156

== ENCOUNTER 2024-05-31 09:20 | Outpatient (CLI) | payer OTHER, SELFPAY ==
[2024-05-31 20:36] LABS: Alanine Aminotransferase 16 U/L (6-50); Albumin Level 4.4 g/dL (3.5-5.1); Alkaline Phosphatase 62 U/L (38-126); Anion Gap 10 mmol/L (4-12); Aspartate Amino Transferase 16 U/L (17-59); Bilirubin,Total 0.4 mg/dL (0.2-1.3); Blood Urea Nitrogen 24 mg/dL (9-20); Calcium 10.1 mg/dL (8.4-10.2); Carbon Dioxide 28 mmol/L (22-30); Chloride 105 mmol/L (98-107); Cholesterol 132 mg/dL (0-200); Estimated Glomerular Filt Rate 52; Glucose 189 mg/dL (65-110); HDL Direct 36 mg/dL; Sodium 143 mmol/L (137-145); Triglycerides 116 mg/dL (<150)
[2024-05-31 20:48] LABS: LDL Cholesterol Direct 70 mg/dL
[2024-05-31 20:54] LABS: Hemoglobin A1C 9.2 % (<5.7)
[2024-05-31 22:45] LABS: Vitamin D 25 Hydroxy 59.5 ng/mL
== END 2024-05-31 09:21 | disposition home or self-care (01) ==
LOC: ANHGOSHLAB 09:21
PROVIDERS: PCP Family Medicine; Visit Provider Nurse Practitioner
DX: E78.5 Hyperlipidemia, unspecified (principal); E53.8 Deficiency of other specified B group vitamins; E11.22 Type 2 diabetes mellitus with diabetic chronic kidney disease; N18.30 Chronic kidney disease, stage 3 unspecified; E55.9 Vitamin D deficiency, unspecified
CPT/HCPCS: 36415; 80053; 80061; 82306; 82607; 83036

== ENCOUNTER 2024-06-08 12:24 | Outpatient (CLI) | payer OTHER, SELFPAY ==
--- NOTE | ~2024-06-08 | XR_ITS ---
AP view of the pelvis and AP and lateral views of the bilateral hips Clinical history: Pain Findings: No acute fracture or dislocation is seen. Osseous alignment is anatomic. There is minimal r ight hip joint degenerative change. Left hip joint intact. Soft tissues are unremarkable. Impression: Minimal degenerative change of the right hip joint. Reviewed, dictated and finalized at location . 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
== END 2024-06-08 12:25 | disposition home or self-care (01) ==
LOC: GOSHIMG 12:25
PROVIDERS: PCP Family Medicine; Visit Provider Family Medicine
DX: M16.11 Unilateral primary osteoarthritis, right hip (principal)
CPT/HCPCS: 73521

== ENCOUNTER 2024-08-15 09:43 | Outpatient (CLI) | payer OTHER, SELFPAY ==
[2024-08-15 14:22] LABS: Creatinine Urine 115.8 mg/dL; Total Protein Urine Random 60 mg/dL; Ur Ttl Prot Creatinine Ratio 0.52 mg/mg (0-0.20)
[2024-08-15 14:46] LABS: Albumin Level 4.5 g/dL (3.5-5.1); Anion Gap 12 mmol/L (4-12); Blood Urea Nitrogen 23 mg/dL (9-20); Calcium 9.5 mg/dL (8.4-10.2); Carbon Dioxide 26 mmol/L (22-30); Chloride 100 mmol/L (98-107); Estimated Glomerular Filt Rate 59; Glucose 132 mg/dL (65-110); Phosphorus 3.7 mg/dL (2.5-4.5); Potassium 3.6 mmol/L (3.4-5.0); Sodium 138 mmol/L (137-145)
[2024-08-15 14:48] LABS: Vitamin D 25 Hydroxy 67.7 ng/mL
[2024-08-15 15:05] LABS: Parathyroid Intact 32.2 pg/mL (14.5-75.2)
== END 2024-08-15 09:44 | disposition home or self-care (01) ==
LOC: ANHGOSHLAB 09:44
PROVIDERS: PCP Family Medicine; Visit Provider Internal Medicine Nephrology
DX: I12.9 Hypertensive chronic kidney disease with stage 1 through stage 4 chronic kidney disease, or unspecified chronic kidney disease (principal); E11.22 Type 2 diabetes mellitus with diabetic chronic kidney disease; N18.32 Chronic kidney disease, stage 3b; R80.9 Proteinuria, unspecified; N25.81 Secondary hyperparathyroidism of renal origin; E55.9 Vitamin D deficiency, unspecified
CPT/HCPCS: 36415; 80069; 82306; 82570; 83970; 84156

== ENCOUNTER 2024-08-31 14:30 | Outpatient (RCR) | payer OTHER, SELFPAY | END 2024-09-19 13:21 | disposition home or self-care (01) | LOC: ANHDMC 14:30 | PROVIDERS: PCP Family Medicine; Visit Provider Family Medicine | DX: E11.22 Type 2 diabetes mellitus with diabetic chronic kidney disease (principal); Z71.89 Other specified counseling | CPT/HCPCS: G0108; G0109 ==

== ENCOUNTER 2024-09-07 12:51 | Outpatient (CLI) | payer OTHER, SELFPAY ==
--- OUTSIDE RECORDS SUMMARY | 2024-09-07 13:47 | XMS_ITS | Clinical Summary ---
Author Organization [facility] Address [address] [place] [phone] Phone Care Team Providers Care Bobbin Collector Name Role Phone Nader Aceves MD Primary Care Provider Allergies No known active allergies Medications Medication Sig Dispensed Refills Start Date End Date Status amLODIPine (NORVASC) 10 MG tablet Take 10 mg by mouth 1 (one) time each day 07/08/2021 Active carvedilol (COREG) 25 MG tablet Take 25 mg by mouth 1 (one) time each day 07/08/2021 Active Jardiance 25 MG tablet Take 1 tablet by mouth 1 (one) time each day 06/18/2021 Active hydrALAZINE (APRESOLINE) 50 MG tablet Take 50 mg by mouth 2 (two) times a day 07/07/2021 Active ibuprofen (ADVIL) 200 MG tablet ibuprofen 200 mg tablet Take 1 tablet every 6 hours by oral route as needed. 01/06/2020 Active levETIRAcetam (KEPPRA) 500 MG tablet levetiracetam 500 mg tablet Active losartan-hydroCHLOR Othiazide (HYZAAR) 100-12.5 MG per tablet Take 1 tablet by mouth 1 (one) time each day 07/07/2021 Active metFORMIN XR 500 MG 24 hr tablet metformin ER 500 mg tablet,extended release 24 hr Active omeprazole (PriLOSEC) [address] capsule omeprazole 20 mg capsule,delayed release Active ondansetron ODT (ZOFRAN-ODT) [address] 1 TABLET ON TOP OF TONGUE AND ALLOW TO DISSOLVE 3 TIMES A DAY NEEDED 08/02/2021 Active pravastatin (PRAVACHOL) 10 MG tablet pravastatin 10 mg tablet 01/06/2020 Active sildenafil (VIAGRA) 100 MG tablet Take 100 mg by mouth 1 (one) time each day if needed 07/26/2021 Active Cholecalciferol (Vitamin D3) 1.25 MG (31569 UT) capsule Take 1 capsule by mouth 1 (one) time per week 02/22/2022 Active glipiZIDE (GLUCOTROL) 10 MG tablet Take 10 mg by mouth 2 (two) times a day 02/01/2022 Active Active Problems Problem Noted Date Diagnosed Date Fracture of phalanx of thumb 03/26/2022 Diabetes mellitus 01/06/2020 Hypertensive disorder 01/06/2020 Seizure 01/06/2020 Immunizations Name Administration Dates Next Due Influenza, Injectable, Quadrivalent, Preservativ e Free 07/10/2020 Sars-cov-2, Unspecified 11/07/2020 Family History Medical History Relation Comments Kidney disease Brother Hypertension Mother Kidney disease Mother Diabetes mellitus Sister Relation Status Comments Brother Mother Sister Social History Tobacco Use Types Packs/Day Years Used Date Smoking Tobacco: Never Smokeless Tobacco: Never Alcohol Use Standard Drinks/Week Comments Yes 0 (1 standard drink = 0.6 oz pur e alcohol) occassional use Sex and Gender Information Value Date Recorded Sex Assigned at Not on file Gender Identity Not on file Sexual Orientation Not on file Last Filed Vital Signs Vital Sign Reading Time Taken Comments Blood Pressure 134/72 03/26/2022 9:54 AM CDT Pulse - - Temperature 37.2 C (99 F) 03/26/2022 9:54 AM CDT Respiratory Rate 18 03/26/2022 9:54 AM CDT Oxygen Saturation - - Inhaled Oxygen Concentration - - Weight 95.3 kg (210 lb) 03/26/2022 9:54 AM CDT Height 180.3 cm (5' 11 ) 03/26/2022 9:54 AM CDT Body Mass Index 29.29 03/26/2022 9:54 AM CDT Plan of Treatment Health Maintenance Due Date Last Done Comments Pneumococcal PPSV23/PCV13 65 + Years / Low and Medium Risk (1 of 4 - PCV) 2021 Influenza Vaccine (#1) 2024 07/10/2020 Care Teams Bobbin Collector Relationship Specialty Start Date End Date Nader Aceves MD [address] [place] [address] PCP - General Internal Medicine 11/11/21
--- OUTSIDE RECORDS SUMMARY | 2024-09-07 13:47 | XMS_ITS | Clinical Summary ---
Author Organization [facility] Address [address] [place] [address] Care Team Providers Care Autocad Electrical Designer Name Role Phone Faraz Mortensen MD Primary Care Provider [phone] Allergies No known active allergies Social History Tobacco Use Types Packs/Day Years Used Date Smoking Tobacco: Never Smokeless Tobacco: Never Alcohol Use Standard Drinks/Week Comments Yes 3.3 (1 standard drink = 0.6 oz p ure alcohol) Sex and Gender Information Value Date Recorded Sex Assigned at Not on file Legal Sex Male 5:10 PM CDT Gender Identity Not on file Sexual Orientation Not on file Last Filed Vital Signs Vital Sign Reading Time Taken Comments Blood Pressure 155/103 11/12/2020 11:26 PM CDT Pulse 99 11/12/2020 10:16 PM CDT Temperature 37.2 C (99 F) 11/12/2020 1:14 PM CDT Respiratory Rate 18 11/12/2020 10:16 PM CDT Oxygen Saturation 99% 11/12/2020 10:16 PM CDT Inhaled Oxygen Concentration - - Weight 93.9 kg (207 lb) 11/12/2020 1:14 PM CDT Height 182.9 cm (6') 11/12/2020 1:14 PM CDT Body Mass Index 28.07 11/12/2020 1:14 PM CDT Plan of Treatment Health Maintenance Due Date Last Done Comments Colorectal Cancer Screening Colonoscopy (10 Years) 1956 Hepatitis C 1974 DTaP, Tdap and Td Vaccines ( 1 - Tdap) 1975 Zoster Vaccines (1 of 2) 2006 Pneumococcal Vaccine: 65+ Ye ars (1 of 1 - PCV) 2021 COVID-19 Vaccine (2 - 2023-2 5 season) 2024 10/18/2020 Influenza Adult (#1) 2024 07/10/2020 RSV Immunization or 60+ Years (1 - 1-dose 75+ series) 2031 Meningococcal B Vaccine Aged Out No l onger eligible based on patient's age to complete this topic Meningococcal Vaccine Aged Out No shady prosper eligible based on patient's age to complete this topic RSV Immunizations Under 20 Months Aged Out No longer eligible based on patient's age to complete this topic Insurance MEDICARE PART A Care Teams Autocad Electrical Designer Relationship Specialty Start Date End Date Faraz Mortensen MD [address] [place] [address] PCP - General FAMILY PRACTICE 11/12/20
[2024-09-07 14:10] LABS: Basophils Absolute Auto 0.1 K/mm3 (0.0-0.1); Basophils Percent Auto 1.2 % (0.2-1.2); Eosinophils Absolute Auto 0.3 K/mm3 (0-0.3); Eosinophils Percent Auto 6.8 % (0-4.4); Hematocrit 41.4 % (42.0-52.0); Hemoglobin 12.7 g/dL (14.0-18.0); Immature Granulocyte Absolute 0.01 K/mm3 (0.00-0.031); Immature Granulocyte Percent A 0.2 % (0-0.5); Immature Platelet Fraction Pct 7.2 % (0.9-11.2); Lymphocytes Absolute Auto 1.04 K/mm3 (0.9-3.2); Lymphocytes Percent Auto 20.8 % (18.3-44.2); Mean Corpuscular HGB Conc 30.7 g/dl (32-36); Mean Corpuscular Hemoglobin 20.7 pg (26-34); Mean Corpuscular Volume 67.3 fl (80-100); Monocytes Absolute Auto 0.5 K/mm3 (0.1-0.6); Monocytes Percent Auto 10.6 % (2.6-8.5); Neutrophils Percent Auto 60.4 % (45.5-73.1); Platelet Count Result 212 k/mm3 (150-375); Red Blood Count 6.15 M/mm3 (4.6-6.20); Red Cell Distribution Width 19.3 % (11.5-14.5)
[2024-09-07 14:40] LABS: Anisocytosis 1+; Burr Cells 1+; Platelet Estimate Adequate (Adequate); Schistocytes None Seen
[2024-09-07 16:09] LABS: Iron 88 ug/dL (49-181)
[2024-09-07 16:19] LABS: Percent Iron Saturation 28 % (20-50)
[2024-09-07 16:37] LABS: Alanine Aminotransferase 16 U/L (6-50); Albumin Level 4.6 g/dL (3.5-5.1); Alkaline Phosphatase 60 U/L (38-126); Anion Gap 14 mmol/L (4-12); Aspartate Amino Transferase 21 U/L (17-59); Bilirubin,Total 0.7 mg/dL (0.2-1.3); Blood Urea Nitrogen 25 mg/dL (9-20); Calcium 9.4 mg/dL (8.4-10.2); Carbon Dioxide 27 mmol/L (22-30); Chloride 101 mmol/L (98-107); Estimated Glomerular Filt Rate 52; Glucose 135 mg/dL (65-110); Potassium 3.5 mmol/L (3.4-5.0); Sodium 142 mmol/L (137-145)
[2024-09-07 17:40] LABS: Folic Acid 7.8 ng/mL (2.76->20)
[2024-09-07 17:54] LABS: Hemoglobin A1C 6.8 % (<5.7)
== END 2024-09-07 12:52 | disposition home or self-care (01) ==
LOC: ANHGOSHLAB 12:53
PROVIDERS: PCP Family Medicine; Visit Provider Family Medicine
DX: D64.9 Anemia, unspecified (principal); E11.9 Type 2 diabetes mellitus without complications; E87.6 Hypokalemia; I12.9 Hypertensive chronic kidney disease with stage 1 through stage 4 chronic kidney disease, or unspecified chronic kidney disease; N18.31 Chronic kidney disease, stage 3a
CPT/HCPCS: 36415; 80053; 82607; 82728; 82746; 83036; 83540; 83550; 84443; 85025; 85055

== ENCOUNTER 2024-12-15 13:39 | Outpatient (RCR) | payer OTHER, SELFPAY | END 2025-03-06 10:15 | disposition home or self-care (01) | LOC: ANHDMC 13:39 | PROVIDERS: PCP Family Medicine; Visit Provider Family Medicine | DX: E11.22 Type 2 diabetes mellitus with diabetic chronic kidney disease (principal); Z71.89 Other specified counseling | CPT/HCPCS: G0109 ==

== ENCOUNTER 2024-12-16 19:28 | Outpatient (NON) | payer OTHER, SELFPAY ==
--- OUTSIDE RECORDS SUMMARY | 2024-12-16 19:31 | XMS_ITS | Clinical Summary ---
Author Organization [facility] Address [address] [place] [phone] Phone Care Team Providers Care Community Coordinator [employer] Name Role Phone Nader Aceves MD Primary Care Provider Allergies No known active allergies Medications amLODIPine (NORVASC) 10 MG tablet Take 10 mg by mouth 1 (one) time each day 1 Active carvedilol (COREG) 25 MG tablet Take 25 mg by mouth 1 (one) time each day 1 Active Jardiance 25 MG tablet Take 1 tablet by mouth 1 (one) time each day 1 Active hydrALAZINE (APRESOLINE) 50 MG tablet Take 50 mg by mouth 2 (two) times a day 1 Active ibuprofen (ADVIL) 200 MG tablet ibuprofen 200 mg tablet Take 1 tablet every 6 hours by oral route as needed. 0 Active levETIRAcetam (KEPPRA) 500 MG tablet levetiracetam 500 mg tablet Active losartan-hydroC HLOROthiazide (HYZAAR) 100-12.5 MG per tablet Take 1 tablet by mouth 1 (one) time each day 1 Active metFORMIN XR 500 MG 24 hr tablet metformin ER 500 mg tablet,extended release 24 hr Active omeprazole (PriLOSEC) [address] capsule omeprazole 20 mg capsule,delayed release Active ondansetron ODT (ZOFRAN-ODT) [address] 1 TABLET ON TOP OF TONGUE AND ALLOW TO DISSOLVE 3 TIMES A DAY NEEDED 1 Active pravastatin (PRAVACHOL) 10 MG tablet pravastatin 10 mg tablet 0 Active sildenafil (VIAGRA) 100 MG tablet Take 100 mg by mouth 1 (one) time each day if needed 1 Active Cholecalciferol (Vitamin D3) 1.25 MG (66035 UT) capsule Take 1 capsule by mouth 1 (one) time per week 2 Active glipiZIDE (GLUCOTROL) 10 MG tablet Take 10 mg by mouth 2 (two) times a day 2 Active Active Problems Problem Noted Date Diagnosed Date Fracture of phalanx of thumb 03/26/2022 Diabetes mellitus 01/06/2020 Hypertensive disorder 01/06/2020 Seizure 01/06/2020 Immunizations Immunization Administration Dates Next Due Influenza, Injectable, Quadrivalent, [...] at Not on file Legal Sex Male 2:33 PM [facility] Gender Identity Not on file Sexual Orientation [...] Medium Risk (1 of 4 - PCV) 2006 Influenza Vaccine (Season Ended) 2025 07/10/20 20 Insurance [employer] [facility] Address: [address] [address] Care Teams Community Coordinator [employer] Relationship Specialty Start Date End Date Nader Aceves MD [address] [place] [address] PCP - General Internal Medicine 11/11/21
--- OUTSIDE RECORDS SUMMARY | 2024-12-16 19:31 | XMS_ITS | Clinical Summary ---
Author Organization [facility] Address [address] [place] [address] Care Team Providers Care Sound Ranging Crewmember Name Role Phone Faraz Mortensen MD Primary Care Provider [phone] Allergies No known active allergies Social History [...] Td Vaccines ( 1 - Tdap) 1975 Pneumococcal Vaccine: 50+ Ye ars (1 of 1 - PCV) 2006 Zoster Vaccines (1 of 2) 2006 COVID-19 Vaccine (2 - 2023-2 5 season) 2024 10/18/2020 RSV Immunization or 60+ Years (1 - [...] topic Insurance MEDICARE PART A Care Teams Sound Ranging Crewmember Relationship Specialty Start Date End Date Faraz Mortensen MD [address] [place] [address] PCP - General FAMILY PRACTICE 11/12/20
[2024-12-16 19:39] LABS: Basophils Absolute Auto 0.1 K/mm3 (0.0-0.1); Basophils Percent Auto 1.9 % (0.2-1.2); Eosinophils Absolute Auto 0.2 K/mm3 (0-0.3); Eosinophils Percent Auto 4.9 % (0-4.4); Hematocrit 37.9 % (42.0-52.0); Hemoglobin 11.6 g/dL (14.0-18.0); Immature Granulocyte Absolute 0.02 K/mm3 (0.00-0.031); Immature Granulocyte Percent A 0.4 % (0-0.5); Immature Platelet Fraction Pct 7.2 % (0.9-11.2); Lymphocytes Absolute Auto 1.14 K/mm3 (0.9-3.2); Lymphocytes Percent Auto 23.5 % (18.3-44.2); Mean Corpuscular HGB Conc 30.6 g/dl (32-36); Mean Corpuscular Hemoglobin 20.9 pg (26-34); Mean Corpuscular Volume 68.2 fl (80-100); Monocytes Absolute Auto 0.7 K/mm3 (0.1-0.6); Monocytes Percent Auto 13.6 % (2.6-8.5); Neutrophils Absolute Auto 2.7 K/mm3 (1.3-6.7); Neutrophils Percent Auto 55.7 % (45.5-73.1); Platelet Count Result 226 k/mm3 (150-375); Red Blood Count 5.56 M/mm3 (4.6-6.20); Red Cell Distribution Width 18.6 % (11.5-14.5); White Blood Count 4.9 K/mm3 (4.5-10.0)
[2024-12-16 20:01] LABS: Alanine Aminotransferase 15 U/L (6-50); Albumin Level 4.5 g/dL (3.5-5.1); Alkaline Phosphatase 51 U/L (38-126); Anion Gap 14 mmol/L (4-12); Aspartate Amino Transferase 26 U/L (17-59); Bilirubin,Total 0.9 mg/dL (0.2-1.3); Blood Urea Nitrogen 33 mg/dL (9-20); Calcium 9.2 mg/dL (8.4-10.2); Carbon Dioxide 24 mmol/L (22-30); Chloride 101 mmol/L (98-107); Cholesterol 117 mg/dL (0-200); Estimated Glomerular Filt Rate 32; Glucose 82 mg/dL (65-110); HDL Direct 34 mg/dL; Potassium 3.3 mmol/L (3.4-5.0); Sodium 139 mmol/L (137-145); Triglycerides 74 mg/dL (<150)
[2024-12-16 20:06] LABS: Hemoglobin A1C 5.7 % (<5.7)
[2024-12-16 20:12] LABS: LDL Cholesterol Direct 50 mg/dL; Platelet Estimate Adequate (Adequate); Schistocytes None Seen
[2024-12-16 20:13] LABS: Hypochromasia 1+; Microcytosis 1+ (NORMAL)
[2024-12-16 20:14] LABS: Anisocytosis 2+; Band Neutrophils Percent 0 % (0-6)
[2024-12-16 20:30] LABS: Prostate Specific Antigen 1.9 ng/mL (< OR = 4.0)
== END 2024-12-16 19:29 | disposition home or self-care (01) ==
LOC: ANHLAB 19:29
PROVIDERS: PCP Family Medicine; Visit Provider Family Medicine
DX: E04.1 Nontoxic single thyroid nodule (principal); E11.9 Type 2 diabetes mellitus without complications; I10 Essential (primary) hypertension; E78.5 Hyperlipidemia, unspecified; Z12.5 Encounter for screening for malignant neoplasm of prostate
CPT/HCPCS: 36415; 80053; 80061; 83036; 84153; 84443; 85025; 85055; G0103

== ENCOUNTER 2024-12-27 09:18 | Outpatient (CLI) | payer OTHER, SELFPAY ==
--- OUTSIDE RECORDS SUMMARY | 2024-12-27 09:22 | XMS_ITS | Clinical Summary ---
Author Organization [facility] Address [address] [place] [id number] Phone Care Team Providers Care Nursing Secretary Name Role Phone Nader Aceves MD Primary [...] 1 Active Cholecalciferol (Vitamin D3) 1.25 MG (03933 UT) capsule Take 1 capsule by mouth [...] on file Legal Sex Male 2:33 PM [facility] Gender Identity Not on file Sexual [...] 9:54 AM CDT Height 180.3 cm (5' 11) 03/26/2022 9:54 AM CDT Body Mass Index 29.29 03/26/2022 9:54 AM CDT Plan of Treatment Health Maintenance Due Date Last Done Comments Pneumococcal PPSV23/PCV13 65 + Years / Low and Medium Risk (1 of 4 - PCV) 2006 Influenza Vaccine (Season Ended) 2025 07/10/20 20 Insurance [employer] Care Teams Nursing Secretary Relationship Specialty Start Date End Date Nader Aceves MD [address] [place] [address] PCP - General Internal Medicine 11/11/21
[2024-12-27 11:26] LABS: Albumin Level 4.5 g/dL (3.5-5.1); Anion Gap 11 mmol/L (4-12); Blood Urea Nitrogen 20 mg/dL (9-20); Calcium 9.4 mg/dL (8.4-10.2); Carbon Dioxide 25 mmol/L (22-30); Chloride 106 mmol/L (98-107); Estimated Glomerular Filt Rate 47; Glucose 146 mg/dL (65-110); Phosphorus 3.7 mg/dL (2.5-4.5); Potassium 3.5 mmol/L (3.4-5.0); Sodium 142 mmol/L (137-145)
[2024-12-27 11:46] LABS: Creatinine Urine 109.6 mg/dL; Total Protein Urine Random 49 mg/dL; Ur Ttl Prot Creatinine Ratio 0.45 mg/mg (0-0.20)
== END 2024-12-27 09:19 | disposition home or self-care (01) ==
LOC: ANHGOSHLAB 09:19
PROVIDERS: PCP Family Medicine; Visit Provider Internal Medicine Nephrology
DX: I12.9 Hypertensive chronic kidney disease with stage 1 through stage 4 chronic kidney disease, or unspecified chronic kidney disease (principal); N18.31 Chronic kidney disease, stage 3a; E11.22 Type 2 diabetes mellitus with diabetic chronic kidney disease
CPT/HCPCS: 36415; 80069; 82570; 84156

== ENCOUNTER 2025-04-24 09:15 | Outpatient (CLI) | payer OTHER, SELFPAY ==
--- OUTSIDE RECORDS SUMMARY | 2025-04-24 10:05 | XMS_ITS | Clinical Summary ---
Author Organization [facility] Address [address] [place] [phone] Phone Care Team Providers Care Completion Supervisor Name Role Phone Nader Aceves MD Primary [...] 1 Active Cholecalciferol (Vitamin D3) 1.25 MG (26968 UT) capsule Take 1 capsule by mouth [...] on file Legal Sex Male 2:33 PM [facility] Gender Identity Not on file Sexual Orientation [...] / Low and Medium Risk (1 of 2 - PCV) 2006 Influenza Vaccine (#1) 2025 07/10/2020 [place] [employer] [place] [facility] [place] Address: [address] [phone] Care Teams Completion Supervisor Relationship Specialty Start Date End Date Nader Aceves MD [address] [place], [place] [id number] PCP - General Internal Medicine 11/11/21
[2025-04-24 13:15] LABS: Parathyroid Intact 36.6 pg/mL (14.5-75.2)
[2025-04-24 13:40] LABS: Total Protein Urine Random 17 mg/dL; Ur Ttl Prot Creatinine Ratio 0.24 mg/mg (0-0.20)
[2025-04-24 13:45] LABS: Albumin Level 4.5 g/dL (3.5-5.1); Anion Gap 10 mmol/L (4-12); Blood Urea Nitrogen 23 mg/dL (9-20); Calcium 9.5 mg/dL (8.4-10.2); Carbon Dioxide 25 mmol/L (22-30); Chloride 103 mmol/L (98-107); Estimated Glomerular Filt Rate 44; Glucose 108 mg/dL (65-110); Potassium 4.3 mmol/L (3.4-5.0); Sodium 138 mmol/L (137-145)
== END 2025-04-24 09:16 | disposition home or self-care (01) ==
LOC: ANHGOSHLAB 09:16
PROVIDERS: PCP Family Medicine; Visit Provider Internal Medicine Nephrology
DX: N18.31 Chronic kidney disease, stage 3a (principal); E11.22 Type 2 diabetes mellitus with diabetic chronic kidney disease; I12.9 Hypertensive chronic kidney disease with stage 1 through stage 4 chronic kidney disease, or unspecified chronic kidney disease; N25.81 Secondary hyperparathyroidism of renal origin; E55.9 Vitamin D deficiency, unspecified
CPT/HCPCS: 36415; 80069; 82306; 82570; 83970; 84156

== ENCOUNTER 2025-06-07 16:25 | Inpatient (IN) | payer OTHER, SELFPAY ==
[2025-06-07] VITALS (15 sets, daily range): BP systolic 112–178; BP diastolic 80–119; PULSE 86–103; RESP 10–21; TEMP 36.4–37.2; O2SAT 97–100; BMI 21.5
--- NOTE | ~2025-06-07 | XR_ITS ---
EXAMINATION: XR sm bowel follow through DATE: 06/08/2025 16:40 INDICATION: Small bowel obstruction. Ileus. TECHNIQUE: Bell Cleaner radiograph(s) of the abdomen was/were obtained. Water-soluble oral contrast was administered, and sequential radiographs of the abdomen were obtained until oral contrast was noted to be in the proximal colon. COMPARISON: 06/07/2025 FINDINGS: There is delayed gastric emptying with only minimal contrast seen in the proximal duodenum through the first hour of imaging. Transit time from the stomach to proximal colon was approximately 3 hours. There is normal caliber and mucosal fold pattern throughout the small bowel. IMPRESSION: 1. Delayed gastric emptying suggestive of gastroparesis. 2. Mild delay in contrast progression through otherwise diffusely normal appearing caliber small bowel which would be more consistent with ileus than obstruction. Reviewed, dictated and finalized at location A. MOBILE RELOCATION ENGINEER IMPRESSION: 1. Delayed gastric emptying suggestive of gastroparesis. 2. Mild delay in contrast progression through otherwise diffusely normal appear ing caliber small bowel which would be more consistent with ileus than obstruct ion.
--- NOTE | ~2025-06-07 | CT_ITS ---
EXAMINATION: CT abdomen pelvis wo con DATE: 06/07/2025 20:18 INDICATION: Small bowel obstruction TECHNIQUE: Computed tomography (CT) of the abdomen and pelvis was performed without intravenous contrast. The dose-length product was 257.45 mGy-cm. Automated exposure control and iterative reconstruction technique were employed. COMPARISON: CT dated 11/11/2020 FINDINGS: There are dilated small bowel loops in the upper central abdomen with air-fluid levels. The distal small bowel is decompressed. Appendix is normal. Reticulonodular densities of the lower lobes and right middle lobe, suspicious for infection. There is interlobular septal thickening in the right lower lobe. There are calcified granulomas of the spleen. The pancreas, adrenal glands and kidneys are unremarkable. Gallbladder is present. The liver is unremarkable. No free air or free fluid. There is atherosclerosis of the aorta without aneurysm. No lymphadenopathy. Enlarged prostate gland. 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 IMPRESSION: 1. Dilated proximal small bowel loops with air-fluid levels and decompressed distal small bowel. No definitive transition site identified. Findings compatible with small bowel obstruction or ileus. Consider correlation with small bowel follow-through. 2: Reticulonodular densities of the lower lobes and right middle lobe, suspicious for infection. Reviewed, dictated and finalized at location O. E CALLS NURSE PRACTITIONER IMPRESSION: 1. Dilated proximal small bowel loops with air-fluid levels and decompressed di stal small bowel. No definitive transition site identified. Findings compatible with small bowel obstruction or ileus. Consider correlation with small bowel f ollow-through. 2: Reticulonodular densities of the lower lobes and right middle lobe, suspicio us for infection.
--- NOTE | ~2025-06-07 | XR_ITS ---
EXAM/PROCEDURE: XR chest 1V portable HISTORY: Weakness and cough COMPARISON: 2022 TECHNIQUE: Two AP view(s) of the chest. FINDINGS: LUNGS: Clear of acute processes. PLEURAL SPACES: Clear. No evidence of fluid or pneumothorax. HEART/ MEDIASTINUM: Normal in appearance. SOFT TISSUES: No significant findings. BONES: No acute osseous abnormality. IMPRESSION: No acute findings. Reviewed, dictated and finalized at location A. INSTALLER IMPRESSION: No acute findings.
--- NOTE | 2025-06-07 18:49 | ECG_ITS ---
Test Date: 2025-06-07 19:03:48 Measurements Intervals [place] Rate: 94 P: 60 [place]: 143 QRS: 69 QRSD: 88 T: 25 QT: 346 QTc: 434 Interpretive Statements SINUS RHYTHM NONSPECIFIC ST & T-WAVE ABNORMALITY No previous ECG available for comparison Electronically Signed On 06-08-2025 07:21:04 INTERFACE DESIGNER by Mao Calderon D.O
[2025-06-07 19:20] LABS: Hematocrit 44.9 % (42.0-52.0); Hemoglobin 14.4 g/dL (14.0-18.0); Immature Granulocyte Percent A 0.2 % (0-0.5); Immature Platelet Fraction Pct 8.2 % (0.9-11.2); Lymphocytes Absolute Auto 0.77 K/mm3 (0.9-3.2); Mean Corpuscular HGB Conc 32.1 g/dl (32-36); Mean Corpuscular Hemoglobin 21.3 pg (26-34); Mean Corpuscular Volume 66.3 fl (80-100); Nucleated Red Blood Cells Absolute Auto 0.000 K/mm3 (0.0-0.012); Nucleated Red Blood Cells Perc 0.0 % (0.0-0.2); Platelet Count Result 208 k/mm3 (150-375); Red Blood Count 6.77 M/mm3 (4.6-6.20); White Blood Count 6.1 K/mm3 (4.5-10.0)
[2025-06-07] MEDS: SODIUM CHLORIDE 0.9% IV 1,000 ML 999 ML IV CONT ×2 (19:21→20:53)
--- NOTE | 2025-06-07 19:28 | PC.NURSE ---
Received report from JAVAD Estes for cont. of care. Pt lying ons tretcher with respirations even and unlabored. Pt presents to ED c/o weakness and inability to tolerate food. Pt AOx4, on cont. cardiac and pulse oximeter monitoring.
--- NOTE | 2025-06-07 19:29 | ED_ITS ---
HPI - Weakness General Chief complaint: Weakness Stated complaint: nauseated and weakness Time Seen by Provider: 06/07/25 18:49 Source: patient and family Mode of arrival: ambulatory Limitations: no limitations History of Present Illness HPI Narrative: This is a 70-year-old male with history of CKD, diabetes, hypertension who presents the ED for weakness and nausea. Patient states over the last 4 days he has had nausea with few episodes of vomiting. He has been having extreme weakness since then has had difficulty walking due to that. He has had a decreased appetite. He has had diminished bowel movements but does not feel constipated. He did initially have urinary urgency but this has resolved. Denies dysuria, hematuria. No known sick contacts. Related Data Home Medications ?Medication ?Instructions ?Recorded ?Confirmed ?Last Taken ?Type carvedilol 25 mg tablet 25 mg PO BID 12/20/24 Unknown History Allergies Allergy/AdvReac Type Severity Reaction Status Date / Time No Known Allergies Allergy Verified 04/27/25 10:26 Review of Systems 2 Review of Systems: Gen.: Denies fevers or chills Eyes: Denies eye pain or visual change ENT: Denies congestion Respiratory: Denies shortness of breath or cough CV: Denies chest pain or palpitations GI: As per HPI as per HPI Musculoskeletal: Denies back pain or muscle pain Neuro: Denies numbness, tingling, weakness or focal weakness Skin: Denies rash Except as documented, all other systems reviewed and negative [facility] Past Medical History Medical History (Updated 06/07/25 @ 23:00 by Lv Villalpando DO) Fatty tumor removed Hyperlipidemia due to dietary fat intake Depression Stage 3a chronic kidney disease Vitamin B12 deficiency Vitamin D deficiency Intention tremor CKD (chronic kidney disease) stage 3, GFR 30-59 ml/min Erectile dysfunction Essential (primary) hypertension Type 2 diabetes mellitus without complications Surgical History Surgical History (Updated 06/07/25 @ 22:01 by Kimberly Luna APRN) History of cardiac cath no intervention Family History Family History Mother Hypertension Heart disease Sibling Diabetes mellitus Social History Social History (Updated 06/07/25 @ 22:02 by Kimberly Luna APRN) Social History: . 3 daughters 1 passed and 3 stepm soms Tobacco type: cigars (2/month) Alcohol intake: current Alcohol use details: occasionnally Substance use: never Substance use type: does not use Do You Feel Safe in your Home?: Yes Lack of Transportation: No Lack of Food: Never True Current Housing: I Have Housing Concerned About Future Housing: No Difficulty Paying Gas/Electric Bills: No Difficulty Paying for Meds: No Currently Unemployed: No Education: High School Diploma/GED Difficulty w/ Childcare or Family Care: No Living arrangements: with family Occupation/Education: retired Gender identity (if verbalized by the patient): Male Sexual Orientation (if Verbalized by the Patient): Straight or Heterosexual Spiritual care concerns: No Agree to blood products: Yes Exam 2 Narrative: APPEARANCE: No acute distress, nontoxic, resting in bed EYES: EOMI HEENT: Normocephalic, atraumatic, OMM RESPIRATORY: No respiratory distress Clear to auscultation bilaterally with no rhonchi wheezing or rales. CARDIOVASCULAR: Tachycardic with regular rhythm without murmurs rubs or gallops. ABDOMINAL: Soft, nontender, nondistended, no rebound or guarding MUSCULOSKELETAl: Moves all extremities. No clubbing, cyanosis or edema. 4/5 strength to all extremities. NEURO: Awake and alert. Following commands, speech normal, no focal deficits SKIN:: Warm, dry. No rashes lesions or abrasions PSYCHIATRIC: Normal affect/mood, Course Vital Signs Vital signs: Vital Signs Temperature 99.0 F 06/07/25 16:26 Pulse Rate 103 H 06/07/25 16:26 Respiratory Rate 20 06/07/25 16:26 Blood Pressure 112/80 06/07/25 16:26 Pulse Oximetry 100 06/07/25 16:26 Temperature 97.9 F 06/07/25 19:30 Pulse Rate 86 06/07/25 22:25 Respiratory Rate 15 06/07/25 21:30 Blood Pressure 158/106 H 06/07/25 22:29 Pulse Oximetry 99 06/07/25 22:25 MDM - Weakness MDM Narrative Medical decision making narrative: 70-year-old male Presenting for weakness, nausea. On initial evaluation patient was in no acute distress afebrile, hemodynamic stable. Differentials include but are not limited to: ACS, Cholecystitis, choledocolithiasis, GERD, PUD, Pancreatitis, SBO, Cancer, AAA, ACS, viral syndrome, Notable exam findings: Mildly dry mucous membranes heart and lungs clear. Abdomen soft and nontender. Notable lab findings: CBC without significant abnormalities. Hypokalemic to 2.9. Creatinine elevated at 2.09 from baseline around 1.6. Lipase elevated at 2000. COVID/flu/RSV negative. Notable imaging findings: Chest x-ray showed no acute process. CT abdomen/pelvis could be consistent with an SBO versus ileus, however given patient's clinical symptoms at this time, it is much more likely that he has pancreatitis causing his symptoms. Suspect that patient has semaglutide induced pancreatitis at this time. He was given 2 L NS bolus. He was given potassium replacement for his hypokalemia. Case was discussed with hospitalist and was advised on the CT findings in the event that he does have worsening of his symptoms. Hospitalist will admit the patient. Medical Records Attestation: I reviewed the patient's medical records. Lab Data Attestation: I reviewed the patient's lab results. 06/07/25 19:09 06/07/25 19:09 Labs: Lab Results 06/07/25 06/07/25 06/07/25 Range/Units 19:08 19:09 19:17 WBC 6.1 (4.5-10.0) K/mm3 RBC 6.77 H (4.6-6.20) M/mm3 Hgb 14.4 (14.0-18.0) g/dL Hct 44.9 (42.0-52.0) % MCV 66.3 L (80-100) fl MCH 21.3 L (26-34) pg MCHC 32.1 (32-36) g/dl RDW 18.2 H (11.5-14.5) % Plt Count 208 (150-375) k/mm3 MPV 10.5 H (7.4-10.4) fl Immature Gran % (Auto) 0.2 (0-0.5) % Neut % (Auto) 72.2 (45.5-73.1) % Lymph % (Auto) 12.5 L (18.3-44.2) % [place] % (Auto) 14.3 H (2.6-8.5) % Eos % (Auto) 0.3 (0-4.4) % Baso % (Auto) 0.5 (0.2-1.2) % Lymph # (Auto) 0.77 L (0.9-3.2) K/mm3 [place] # (Auto) 0.9 H (0.1-0.6) K/mm3 Eos # (Auto) 0.0 (0-0.3) K/mm3 Baso # (Auto) 0.0 (0.0-0.1) K/mm3 Abs Immat Gran (auto) 0.01 (0.00-0.031) K/mm3 Absolute Neuts (auto) 4.4 (1.3-6.7) K/mm3 Absolute Nucleated RBC 0.000 (0.0-0.012) K/mm3 Band Neutrophils % 0 (0-6) % Nucleated RBC % 0.0 (0.0-0.2) % Platelet Estimate Adequate (Adequate) % Immature Plt Fraction 8.2 (0.9-11.2) % Anisocytosis 2+ Microcytosis 1+ (NORMAL) Schistocytes None seen Sodium 135 L (137-145) mmol/L Potassium 2.9 L (3.4-5.0) mmol/L Chloride 92 L (98-107) mmol/L Carbon Dioxide 32 H (22-30) mmol/L Anion Gap 11 (4-12) mmol/L BUN 41 H D (9-20) mg/dL Creatinine 2.09 H (0.7-1.3) mg/dL Estim Creat Clear Calc 32 ml/min Estimated GFR 32 L (59 - ) Glucose 177 H (65-110) mg/dL Calcium 9.6 (8.4-10.2) mg/dL Magnesium 2.0 (1.6-2.3) mg/dL Total Bilirubin 1.1 (0.2-1.3) mg/dL AST 17 (17-59) U/L ALT 19 (6-50) U/L Alkaline Phosphatase 63 (38-126) U/L Troponin I < 0.012 (0.000-0.034) ng/mL NT-Pro-B Natriuret Pep 134 H (19.9-100) pg/mL Total Protein 9.2 H (6.3-8.2) g/dL Albumin 4.8 (3.5-5.1) g/dL Lipase 2055 H (23-300) U/L Influenza A (RT-PCR) Negative (Negative) Influenza B (RT-PCR) Negative (Negative) RSV (RT-PCR) Negative (Negative) SARS-CoV-2 RNA (RT-PCR) Negative (Negative) Imaging Data Attestation: I personally reviewed and interpreted this imaging study as follows: ECG Data EKG #1: Attestation: I personally reviewed and interpreted this ECG as follows: ECG completion date: 06/07/25 ECG completion time: 19:03 Interpretation: Normal sinus rhythm rate of 94, normal axis, normal interval, nonspecific T wave change, no ST changes Discharge Plan Discharge Clinical Impression: Acute hypokalemia, Acute hyponatremia, CHATA (acute kidney injury), Weakness Pancreatitis Qualifiers: Chronicity: acute Pancreatitis type: drug induced Acute pancreatitis complication: unspecified Qualified Code(s): K85.30 - Drug induced acute pancreatitis without necrosis or infection Patient Disposition: Still a Patient Condition: Stable
[2025-06-07 19:31] LABS: Alanine Aminotransferase 19 U/L (6-50); Albumin Level 4.8 g/dL (3.5-5.1); Alkaline Phosphatase 63 U/L (38-126); Anion Gap 11 mmol/L (4-12); Aspartate Amino Transferase 17 U/L (17-59); Bilirubin,Total 1.1 mg/dL (0.2-1.3); Blood Urea Nitrogen 41 mg/dL (9-20); Calcium 9.6 mg/dL (8.4-10.2); Carbon Dioxide 32 mmol/L (22-30); Chloride 92 mmol/L (98-107); Estimated CRCL calculation 32 ml/min; Estimated Glomerular Filt Rate 32; Glucose 177 mg/dL (65-110); Potassium 2.9 mmol/L (3.4-5.0); Sodium 135 mmol/L (137-145); Total Protein 9.2 g/dL (6.3-8.2)
[2025-06-07 19:41] LABS: Microcytosis 1+ (NORMAL); Schistocytes None Seen
[2025-06-07 19:42] LABS: Anisocytosis 2+; Band Neutrophils Percent 0 % (0-6)
[2025-06-07 19:43] LABS: NT Pro B Type Natriuretic Pept 134 pg/mL (19.9-100); Troponin I < 0.012 ng/mL (0.000-0.034)
[2025-06-07 19:58] LABS: Influenza A QL RT-PCR Negative (Negative); Influenza B QL RT-PCR Negative (Negative); RSV RNA, RT-PCR Negative (Negative); SARS-CoV-2 RNA PCR Negative (Negative)
[2025-06-07] MEDS: ONDANSETRON INJ 4 MG/2 ML VIAL IV PUSH ×3 (20:01→23:12)
[2025-06-07] MEDS: POTASSIUM CHLORIDE 20 MEQ PACKET (FOR LIQUID) 40 MEQ PO (20:01)
[2025-06-07 20:08] LABS: Lipase 2055 U/L (23-300)
[2025-06-07 21:02] LABS: Magnesium 2.0 mg/dL (1.6-2.3)
--- NOTE | 2025-06-07 21:55 | PM.IMHP ---
H&P: HPI History of Present Illness Date/Time: 06/07/25 21:55 Chief Complaint: Weakness Narrative: This is a 70-year-old patient who has a history of diabetes, hypertension and chronic kidney disease. The patient has been complaining of weakness and nausea. The patient has been on tirzapatide for several months. He stated that he has lost a significant amount of weight over 40 lb. However over the last 4 days he has had nausea with a few episodes of vomiting. The patient had difficulty walking secondary to extreme weakness. He has had a decreased appetite. He feels constipated. He initially had some urinary symptoms but they have resolved since then. His sodium was noted to be 135, potassium 2.9, chloride 92, carbon dioxide 32, BUN 41 and creatinine 2.09. Previous BUN had been 23 and creatinine had been 1.57. His current GFR is 32 with a previous value of 44 to 47. Glucose is 177. BNP 134. Lipase is 2055. Viral serology is negative. Chest x-ray was read as no acute findings. Abdominal pelvis CT was read as a following1. Dilated proximal small bowel loops with air-fluid levels and decompressed distal small bowel. No definitive transition site identified. Findings compatible with small bowel obstruction or ileus. Consider correlation with small bowel follow-through. 2: Reticulonodular densities of the lower lobes and right middle lobe, suspicious for infection. The patient was given 2 L of IV boluses, Zofran, and p.o. potassium. The patient is being admitted to inpatient status on 06/07/2025. Review of Systems Constitutional: Constitutional: Reports as per HPI and Reports no additional constitutional complaints Eyes: Eyes: Reports as per HPI and Reports no additional eye complaints ENT: Reports no additional ear, nose, mouth, and throat complaints and Reports Normal hearing present Cardiovascular: Cardiovascular: Reports no additional cardiovascular complaints Respiratory: Respiratory: Reports as per HPI and Reports no additional respiratory complaints Gastrointestinal: Gastrointestinal: Reports as per HPI and Reports no additional gastrointestinal complaints Musculoskeletal: Musculoskeletal: Reports no additional musculoskeletal complaints Integumentary/Breasts: Skin/Breast: Reports system reviewed and no additional complaints, except as docu Neurologic: Reports no additional neurologic complaints and Reports Normal hearing present Psychiatric: Psychiatric: Reports no additional psychiatric complaints and Reports as per HPI Hematologic/Lymphatic: Hematologic/Lymphatic: Reports no additional hematologic/lymphatic complaints Allergic/Immunologic: Allergic/Immunologic: Reports no additional allergic/immunologic complaints [facility] Past Medical History Medical History (Updated 06/08/25 @ 12:36 by Ely Gómez APRN) Fatty tumor removed Hyperlipidemia due to dietary fat intake Depression Stage 3a chronic kidney disease Vitamin B12 deficiency Vitamin D deficiency Intention tremor CKD (chronic kidney disease) stage 3, GFR 30-59 ml/min Erectile dysfunction Essential (primary) hypertension Type 2 diabetes mellitus without complications Surgical History Surgical History (Updated 06/08/25 @ 01:58 by Kimberly Luna APRN) H/O local excision of skin lesion Fatty tumor of forehead History of cardiac cath no intervention Family History Family History Mother Hypertension Heart disease Sibling Diabetes mellitus Social History Social History (Updated 06/08/25 @ 01:59 by Kimberly Luna APRN) Social History: He lives with his . He had 3 daughters but 1 passed and he has 2 stepsons. His is the durable power insurance defense attorney for healthcare. He is retired. Code status: Full code Tobacco type: cigars (2/month) Alcohol intake: current Alcohol use details: occasionnally Substance use: never Substance use type: does not use Do You Feel Safe in your Home?: Yes Lack of Transportation: No Lack of Food: Never True Current Housing: I Have Housing Concerned About Future Housing: No Difficulty Paying Gas/Electric Bills: No Difficulty Paying for Meds: No Currently Unemployed: No Education: High School Diploma/GED Difficulty w/ Childcare or Family Care: No Living arrangements: with family Occupation/Education: retired Gender identity (if verbalized by the patient): Male Sexual Orientation (if Verbalized by the Patient): Straight or Heterosexual Spiritual care concerns: No Agree to blood products: Yes Meds Home Medications and Allergies Home Medications ?Medication ?Instructions ?Recorded ?Confirmed ?Type cholecalciferol (vitamin D3) 50 50 mcg PO DAILY #90 tabs 07/22/23 06/07/25 Rx mcg (2,000 unit) tablet hydralazine 100 mg tablet 100 mg PO TID #270 tabs 10/10/24 06/07/25 Rx metformin 500 mg tablet,extended 1,000 mg (2 x 500 mg) PO DAILY 10/24/24 06/07/25 Rx release 24 hr #180 tabs carvedilol 25 mg tablet 25 mg PO BID 12/20/24 06/07/25 History losartan 100 1 tablet PO DAILY #90 tabs 12/20/24 06/07/25 Rx mg-hydrochlorothiazide 25 mg tablet potassium chloride 10 mEq 10 meq PO DAILY #90 caps 12/20/24 06/07/25 Rx capsule,extended release amlodipine 10 mg tablet 10 mg PO DAILY #90 tabs 12/29/24 06/07/25 Rx blood sugar diagnostic (OneTouch #100 ea 01/19/25 06/07/25 Rx Ultra Test strips) blood-glucose meter (OneTouch #1 ea 01/19/25 06/07/25 Rx Ultra2 Meter) lancets 30 gauge (OneTouch #100 ea 01/19/25 06/07/25 Rx UltraSoft 2 Lancet) cyanocobalamin (vitamin B-12) 1,000 mcg PO DAILY #90 tabs 05/15/25 06/07/25 Rx 1,000 mcg sublingual tablet atorvastatin 10 mg tablet (Lipitor) 10 mg PO QHS #90 tabs 05/18/25 06/07/25 Rx ondansetron 8 mg disintegrating 8 mg PO Q8H PRN nausea and 06/07/25 06/07/25 Rx tablet vomiting #15 tabs Allergies Allergy/AdvReac Type Severity Reaction Status Date / Time No Known Allergies Allergy Verified 06/08/25 02:07 Vital Signs Vital Signs - 24 hr 06/07/25 16:26 06/07/25 19:00 06/07/25 19:01 Temperature 99.0 F Pulse Rate 103 H 99 100 Respiratory Rate 20 21 H 21 H Blood Pressure 112/80 150/107 H Pulse Oximetry 100 100 100 06/07/25 19:15 06/07/25 19:16 06/07/25 19:24 Temperature 97.9 F Pulse Rate 95 94 98 Respiratory Rate 19 19 20 Blood Pressure 168/117 H 147/109 H Pulse Oximetry 100 06/07/25 19:25 06/07/25 19:30 06/07/25 19:31 Temperature 97.9 F Pulse Rate 88 90 87 Respiratory Rate 14 10 L 12 Blood Pressure 147/109 H 158/111 H Pulse Oximetry 100 100 100 06/07/25 20:31 06/07/25 21:30 Temperature Pulse Rate 92 95 Respiratory Rate 14 15 Blood Pressure 153/112 H Pulse Oximetry 100 97 Exam Const: General: cooperative, healthy appearing, comfortable, no acute distress, well developed, awake, Physically active, average body habitus and well nourished Nutritional Appearance: average body habitus and well nourished Orientation/consciousness: oriented to person, oriented to place, oriented to time and patient oriented x3 Limitations: no limitations HENMT: Head: normal to inspection, No palpable skull fracture present, normocephalic, atraumatic and abrasion Ears: hearing grossly normal bilaterally and external ears normal Face/Nose/Sinus: Normal external nose present and Normal nares present Eyes: General: appearance normal, both eyes and all related structures Alignment and Position: alignment normal Periorbital: periorbital findings normal Eyelids: eyelids normal EOM: EOMs intact bilaterally Neck: Neck: normal visual inspection, full ROM and no lymphadenopathy Chest: Chest palpation & inspection: normal inspection of the chest Resp: Effort & Inspection: normal respiratory effort Auscultation: clear to auscultation bilaterally Cardio: Palpation: normal PMI Rate: regular rate Rhythm: regular rhythm Heart sounds: S1 normal heart sound present and S2 normal heart sound present Peripheral pulses: Peripheral pulses 2+ throughout GI: Inspection: normal to inspection Percussion: Yes normal to percussion Auscultation: normal bowel sounds Rectal Exam: deferred Other: Nontender Back/Spine/Pelvis: Cervical Spine: cervical ROM normal Skin: General skin exam: normal color Lesions: no lesions Rashes: no rashes Trauma: no lacerations or abrasions Wounds: no wounds Hair: normal Nails: normal Neuro: General: oriented to person, oriented to place, oriented to time and patient oriented x3 Cranial nerves: Yes Normal hearing present Cognition (Neuro): normal cognition Speech: normal speech Motor exam (neuro): 5/5 motor strength present throughout Sensory Exam: normal sensation Extrem: General: normal to inspection Right upper extremity: normal to inspection and shoulder/upper arm Left upper extremity: normal to inspection and shoulder/upper arm Right lower extremity: normal to inspection Left lower extremity: normal to inspection Psych: Appearance: grossly normal Mental Status: mental status grossly normal Speech and movement: Normal speech and movement present Affect: normal affect Attitude: cooperative Thought process: Normal thought process present Thought content: Yes Normal thought content present Insight: Good insight present (Psych) Judgement: Good judgement present (Psych) H&P: Results Labs Labs: Short CBC 06/07/25 Range/Units 19:09 WBC 6.1 (4.5-10.0) K/mm3 Hgb 14.4 (14.0-18.0) g/dL Hct 44.9 (42.0-52.0) % Plt Count 208 (150-375) k/mm3 BMP 06/07/25 19:09 Sodium 135 L Potassium 2.9 L Chloride 92 L Carbon Dioxide 32 H BUN 41 H D Creatinine 2.09 H Glucose 177 H Calcium 9.6 Cardiac Enzymes 06/07/25 Range/Units 19:09 Troponin I < 0.012 (0.000-0.034) ng/mL Liver Function 06/07/25 Range/Units 19:09 Total Bilirubin 1.1 (0.2-1.3) mg/dL AST 17 (17-59) U/L ALT 19 (6-50) U/L Alkaline Phosphatase 63 (38-126) U/L Albumin 4.8 (3.5-5.1) g/dL ECG Interpretation: 94 NV 143 QRSd 88 QT 346 QTc 434 --[place]-- P 60 QRS 69 T [address] & T-WAVE ABNORMALITY No previous ECG available for comparison Imaging CT scan - abdomen: Radiologist's impression: ITS Impressions Chest X-Ray 06/07/25 19:03 IMPRESSION: No acute findings. Abdomen/Pelvis CT 06/07/25 20:19 IMPRESSION: 1. Dilated proximal small bowel loops with air-fluid levels and decompressed distal small bowel. No definitive transition site identified. Findings compatible with small bowel obstruction or ileus. Consider correlation with small bowel follow-through. 2: Reticulonodular densities of the lower lobes and right middle lobe, suspicious for infection. Assessment and Plan Assessment and plan (1) Pancreatitis: Qualifiers: Acute pancreatitis complication: unspecified Chronicity: acute Pancreatitis type: drug induced Qualified Code(s): K85.30 - Drug induced acute pancreatitis without necrosis or infection Code(s): K85.90 - Acute pancreatitis without necrosis or infection, unspecified Status: Acute Assessment and Plan: -CT of abdomen/pelvic IMPRESSION: 1. Dilated proximal small bowel loops with air-fluid levels and decompressed distal small bowel. No definitive transition site identified. Findings compatible with small bowel obstruction or ileus. Consider correlation with small bowel follow-through. 2: Reticulonodular densities of the lower lobes and right middle lobe, suspicious for infection. -lipase was noted to be 5 And based on criteria for pancreatitis the lipase is over 3 times the normal. -the patient is on diabetic concentrated carbs diet modification liquid. However if his lipase gets worse then we will need to make him npo.. -the patient is currently not having any abdominal discomfort. -the patient has been on Tirzepatide which commonly causes pancreatitis. This is currently on hold. -check lipid profile - check daily lipase (2) CHATA (acute kidney injury): Code(s): N17.9 - Acute kidney failure, unspecified Status: Acute Assessment and Plan: -this is acute on chronic. Stage III renal disease. Most likely secondary to dehydration with the nausea and poor appetite. -initially his creatinine was 2.09 and is down to 1.47 with fluids. And this is his baseline. -the patient sees a winchman/crane operator outpatient. -hold metformin and losartan. -hold nephrotoxic medication. (3) Acute hypokalemia: Code(s): E87.6 - Hypokalemia Status: Acute Assessment and Plan: -the patient's potassium was 2.9 and was brought up to 3.2 with supplementation. -continue with his daily potassium from home meds (4) Acute hyponatremia: Code(s): E87.1 - Hypo-osmolality and hyponatremia Status: Acute Assessment and Plan: -his sodium was 135 and then 134. Most likely secondary to dehydration. -continue with IV fluids. -control nausea with Zofran. (5) Type 2 diabetes mellitus without complications: Code(s): E11.9 - Type 2 diabetes mellitus without complications Status: Acute Assessment and Plan: -Accu-Cheks AC and HS with sliding scale insulin and hypoglycemic protocol. -metformin is currently on hold at this time. -tirzepatide is on hold -A1c is 5.9 (6) Hyperlipidemia due to dietary fat intake: Code(s): E78.49 - Other hyperlipidemia Status: Acute Assessment and Plan: -liver profile has been ordered. -continue with atorvastatin (7) Essential (primary) hypertension: Code(s): I10 - Essential (primary) hypertension Status: Acute Assessment and Plan: -his hydralazine was made p.r.n. through the IV with parameters. -continue with amlodipine if blood pressure allows. -continue with Coreg as blood pressure allows. -losartan is on hold due to the acute renal failure. Quality VTE Prophylaxis VTE prophylaxis: mechanical ordered
[2025-06-08] VITALS (11 sets, daily range): BP systolic 107–165; BP diastolic 83–105; PULSE 88–104; RESP 16–18; TEMP 36.7–37.5; O2SAT 98–100; BMI 21.5
[2025-06-08 01:59] LABS: Hematocrit 40.2 % (42.0-52.0); Hemoglobin 12.9 g/dL (14.0-18.0); Mean Corpuscular HGB Conc 32.1 g/dl (32-36); Mean Corpuscular Hemoglobin 21.1 pg (26-34); Mean Corpuscular Volume 65.8 fl (80-100); Platelet Count Result 197 k/mm3 (150-375); Red Blood Count 6.11 M/mm3 (4.6-6.20); White Blood Count 6.3 K/mm3 (4.5-10.0)
[2025-06-08 02:15] LABS: Anion Gap 11 mmol/L (4-12); Blood Urea Nitrogen 33 mg/dL (9-20); Calcium 9.1 mg/dL (8.4-10.2); Carbon Dioxide 24 mmol/L (22-30); Chloride 99 mmol/L (98-107); Estimated CRCL calculation 44 ml/min; Estimated Glomerular Filt Rate 47; Glucose 121 mg/dL (65-110); Potassium 3.2 mmol/L (3.4-5.0); Sodium 134 mmol/L (137-145)
[2025-06-08 02:28] LABS: Hemoglobin A1C 5.9 % (<5.7)
[2025-06-08 02:31] LABS: Lipase 2128 U/L (23-300)
[2025-06-08] MEDS: SODIUM CHLORIDE 0.9% IV 1,000 ML 100 ML IV CONT (04:23)
[2025-06-08 06:25] LABS: Hematocrit 39.2 % (42.0-52.0); Hemoglobin 12.7 g/dL (14.0-18.0); Immature Platelet Fraction Pct 8.8 % (0.9-11.2); Mean Corpuscular HGB Conc 32.4 g/dl (32-36); Mean Corpuscular Hemoglobin 21.4 pg (26-34); Mean Corpuscular Volume 66.0 fl (80-100); Platelet Count Result 188 k/mm3 (150-375); Red Blood Count 5.94 M/mm3 (4.6-6.20); White Blood Count 5.7 K/mm3 (4.5-10.0)
[2025-06-08 06:46] LABS: Anion Gap 11 mmol/L (4-12); Blood Urea Nitrogen 31 mg/dL (9-20); Calcium 8.8 mg/dL (8.4-10.2); Carbon Dioxide 26 mmol/L (22-30); Chloride 98 mmol/L (98-107); Cholesterol 143 mg/dL (0-200); Estimated CRCL calculation 44 ml/min; Estimated Glomerular Filt Rate 48; Glucose 129 mg/dL (65-110); HDL Direct 38 mg/dL; Potassium 2.9 mmol/L (3.4-5.0); Sodium 135 mmol/L (137-145); Triglycerides 81 mg/dL (<150)
[2025-06-08] MEDS: POTASSIUM CHLORIDE 10 MEQ ER TABLET PO (08:55)
[2025-06-08] MEDS: FAMOTIDINE 20 MG/2 ML VIAL IV PUSH (08:56)
[2025-06-08] MEDS: POTASSIUM CHLORIDE INJ 40 MEQ in SODIUM CHLORIDE 0.9% IV 500 ML 130 MEQ IVPB (11:07)
--- NOTE | 2025-06-08 12:27 | P.PNIM_ITS ---
Progress Note: A&P Assessment and Plan (1) Pancreatitis: Qualifiers: Acute pancreatitis complication: unspecified Chronicity: acute Pancreatitis type: drug induced Qualified Code(s): K85.30 - Drug induced acute pancreatitis without necrosis or infection Code(s): K85.90 - Acute pancreatitis without necrosis or infection, unspecified Status: Acute Assessment and Plan: -CT of abdomen/pelvic IMPRESSION: Dilated proximal small bowel loops with air- fluid levels and decompressed distal small bowel. No definitive transition site identified. Findings compatible with small bowel obstruction or ileus. Consider correlation with small bowel follow-through. Reticulonodular densities of the lower lobes and right middle lobe, suspicious for infection. Lipase 2054 POA. * Trend lipase * Continue IV fluids * Placed NPO for bowel rest * Pain managed with IV Dilaudid * Antiemetics (2) Ileus: Code(s): K56.7 - Ileus, unspecified Status: Acute Assessment and Plan: CT abdomen showing possible ileus versus SBO, patient reports flatulence no BM but minimal abdominal pain be secondary to pancreatitis and use of to Tirzepatide . * Consult general surgery evaluation appreciate any recommendations * NPO whole advance as tolerated * IV fluids * Encourage activity * Holding Tirzepatide (3) CHATA (acute kidney injury): Code(s): N17.9 - Acute kidney failure, unspecified Status: Acute Assessment and Plan: This is acute on chronic. Stage III renal disease. Most likely secondary to dehydration with the nausea and poor appetite. Initially his creatinine was 2.09 and is down to 1.47 with fluids. And this is his baseline. 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 * tirzepatide is on hold * Hypoglycemic protocol (6) Hyperlipidemia due to dietary fat intake: Code(s): E78.49 - Other hyperlipidemia Status: Acute Assessment and Plan: * continue with atorvastatin (7) Essential (primary) hypertension: Code(s): I10 - Essential (primary) hypertension Status: Acute Assessment and Plan: * IV hydralazine while NPO * Will resume patient's carvedilol, amlodipine and losartan once tolerating oral intake * Monitor BP per unit protocol Plan Code status: Full code per patient DVT prophylaxis: SCDs Stress ulcer prophylaxis: NA PT/OT notes: Ambulatory Disposition: Patient continues admission for acute pancreatitis and possible SBO versus ileus general surgical evaluation will continue with rest NPO Advance diet as tolerated. Patient ambulatory on plan is to return home at discharge when stable. Time Spent With Patient Time with patient: 25 - 35 minutes Subjective Date/time seen: 06/08/25 12:27 Interval history: Patient is a 70-year-old male admitted for further evaluation and treatment acute pancreatitis and hypokalemia, CHATA, possible SBO versus ileus. 06/08/2025: Patient up in chair minimal ABD pain or tenderness, no tenderness with palpation. Denies any N/V and is passing gas. Review of Systems Review of Systems: All systems reviewed & are unremarkable except as noted in HPI and below Exam Const: General: comfortable and no acute distress HENMT: Ears: TM's normal bilaterally Face/Nose/Sinus: Normal nares present Mouth: Yes moist mucous membranes Eyes: General: appearance normal, both eyes and all related structures Sclera: sclerae normal Pupils: Equal, round and reactive pupils present Neck: Neck: supple and no JVD Resp: Effort & Inspection: normal respiratory effort Auscultation: clear to auscultation bilaterally Cardio: Rate: regular rate Rhythm: regular rhythm GI: GI Palp: Yes Soft to palpation and Yes Tenderness to palpation present (GI) (Mild) Auscultation: abnormal bowel sounds (Hypoactive) Skin: General skin exam: normal color and no rashes or lesions noted Wounds: no wounds Neuro: General: gait normal Speech: normal speech Motor exam (neuro): 5/5 motor strength present throughout Sensory Exam: normal sensation Extrem: General: normal to inspection Psych: Mental Status: mental status grossly normal Affect: normal affect Objective Data Vital Signs Vital Signs: Vital Signs - 24 hr 06/07/25 16:26 06/07/25 19:00 06/07/25 19:01 Temperature 99.0 F Pulse Rate 103 H 99 100 Respiratory Rate 20 21 H 21 H Blood Pressure 112/80 150/107 H Pulse Oximetry 100 100 100 Oxygen Delivery 06/07/25 19:15 06/07/25 19:16 06/07/25 19:24 Temperature 97.9 F Pulse Rate 95 94 98 Respiratory Rate 19 19 20 Blood Pressure 168/117 H 147/109 H Pulse Oximetry 100 Oxygen Delivery 06/07/25 19:25 06/07/25 19:30 06/07/25 19:31 Temperature 97.9 F Pulse Rate 88 90 87 Respiratory Rate 14 10 L 12 Blood Pressure 147/109 H 158/111 H Pulse Oximetry 100 100 100 Oxygen Delivery 06/07/25 20:31 06/07/25 21:30 06/07/25 22:25 Temperature Pulse Rate 92 95 86 Respiratory Rate 14 15 Blood Pressure 153/112 H 178/119 H Pulse Oximetry 100 97 99 Oxygen Delivery 06/07/25 22:29 06/07/25 23:31 06/07/25 23:35 Temperature 97.5 F L Pulse Rate 100 Respiratory Rate 16 Blood Pressure 158/106 H 161/103 H 143/93 H Pulse Oximetry 100 Oxygen Delivery 06/08/25 04:00 06/08/25 05:15 06/08/25 06:00 Temperature 99.5 F Pulse Rate 98 100 Respiratory Rate 18 Blood Pressure 155/93 H 149/102 H Pulse Oximetry 100 Oxygen Delivery 06/08/25 08:00 06/08/25 08:00 06/08/25 08:55 Temperature Pulse Rate 100 88 Respiratory Rate Blood Pressure Pulse Oximetry Oxygen Delivery Room Air Intake/Output Intake/Output: Intake & Output 06/05/25 06/06/25 06/07/25 06/08/25 23:59 23:59 23:59 23:59 Intake Total 1000 650 Output Total 350 Balance 1000 300 Meds/Results Medications: Active Medications Generic Name Dose Route Start Last Admin Trade Name Freq PRN Reason Stop Dose Admin Amlodipine Besylate 10 mg 06/08/25 09:00 06/08/25 08:55 Amlodipine Besylate 10 Mg Tablet PO 10 mg DAILY MEG Administration Atorvastatin Calcium 10 mg 06/08/25 21:00 Atorvastatin 10 Mg Tablet PO QHS MEG Carvedilol 25 mg 06/08/25 09:00 06/08/25 08:55 Carvedilol 25 Mg Tablet PO 25 mg Q12HR MEG Administration Dextrose 12.5 gm 06/08/25 01:31 Dextrose 50% 25 Gm/50 Ml Syringe IV PUSH PRN PRN Hypoglycemia Protocol Famotidine 20 mg 06/08/25 09:00 06/08/25 08:56 Famotidine 20 Mg/2 Ml Vial IV PUSH 20 mg Q12HR MEG Administration Glucagon 1 mg 06/08/25 01:31 Glucagon For Inj 1 Mg Vial IM PRN PRN Hypoglycemia Protocol Glucose 15 gm 06/08/25 01:31 Glucose Oral Gel 15 Gm Of Glucse In 37.5 Gm Tube PO PRN PRN Hypoglycemia Protocol Hydralazine HCl 10 mg 06/07/25 21:48 06/07/25 22:26 Hydralazine Hcl 20 Mg/Ml Vial IV PUSH 10 mg Q8H PRN Administration Blood Pressure - High Dextrose 1,000 mls @ 100 mls/hr 06/08/25 01:31 Dextrose 5% 1,000 Ml IVPB PRN PRN Hypoglycemia Protocol Sodium Chloride 1,000 mls @ 100 mls/hr 06/08/25 02:35 06/08/25 04:23 Normal Saline Iv IV CONT 100 mls/hr .Q10H MEG Administration Potassium Chloride 40 meq/ 520 mls @ 130 mls/hr 06/08/25 10:37 06/08/25 11:07 Sodium Chloride IVPB 06/08/25 14:36 130 mls/hr ONCE ONE Administration Insulin Aspart 2 - 5 units 06/08/25 08:00 06/08/25 11:43 Insulin Aspart (*Bkc) 100 Units/Ml SUB-Q Not Given TIDWM [facility] Protocol Ondansetron HCl 4 mg 06/07/25 21:52 06/07/25 23:12 Ondansetron Inj 4 Mg/2 Ml Vial IV PUSH 4 mg Q4H PRN Administration Nausea And Vomiting Potassium Chloride 10 meq 06/08/25 09:00 06/08/25 08:55 Potassium Chloride 10 Meq Er Tablet PO 10 meq DAILY MEG Administration Radiology Results: ITS Impressions Chest X-Ray 06/07/25 19:03 IMPRESSION: No acute findings. Abdomen/Pelvis CT 06/07/25 20:19 IMPRESSION: 1. Dilated proximal small bowel loops with air-fluid levels and decompressed distal small bowel. No definitive transition site identified. Findings compatible with small bowel obstruction or ileus. Consider correlation with small bowel follow-through. 2: Reticulonodular densities of the lower lobes and right middle lobe, suspicious for infection. Labs Labs: Laboratory Results - last 24 hr 06/07/25 06/07/25 06/07/25 19:08 19:09 19:17 WBC 6.1 RBC 6.77 H Hgb 14.4 Hct 44.9 MCV 66.3 L MCH 21.3 L MCHC 32.1 RDW 18.2 H Plt Count 208 MPV 10.5 H Immature Gran % (Auto) 0.2 Neut % (Auto) 72.2 Lymph % (Auto) 12.5 L Bent % (Auto) 14.3 H Eos % (Auto) 0.3 Baso % (Auto) 0.5 Lymph # (Auto) 0.77 L Bent # (Auto) 0.9 H Eos # (Auto) 0.0 Baso # (Auto) 0.0 Abs Immat Gran (auto) 0.01 Absolute Neuts (auto) 4.4 Absolute Nucleated RBC 0.000 Band Neutrophils % 0 Nucleated RBC % 0.0 Platelet Estimate Adequate % Immature Plt Fraction 8.2 Anisocytosis 2+ Microcytosis 1+ Schistocytes None seen Sodium 135 L Potassium 2.9 L Chloride 92 L Carbon Dioxide 32 H Anion Gap 11 BUN 41 H D Creatinine 2.09 H Estim Creat Clear Calc 32 Estimated GFR 32 L Glucose 177 H POC Capillary Glucose Hemoglobin A1c Calcium 9.6 Magnesium 2.0 Total Bilirubin 1.1 AST 17 ALT 19 Alkaline Phosphatase 63 Troponin I < 0.012 NT-Pro-B Natriuret Pep 134 H Total Protein 9.2 H Albumin 4.8 Triglycerides Cholesterol LDL Cholesterol Direct HDL Direct Lipase 2055 H Influenza A (RT-PCR) Negative Influenza B (RT-PCR) Negative RSV (RT-PCR) Negative SARS-CoV-2 RNA (RT-PCR) Negative 06/08/25 06/08/25 06/08/25 01:48 06:00 11:26 WBC 6.3 5.7 RBC 6.11 5.94 Hgb 12.9 L 12.7 L Hct 40.2 L 39.2 L MCV 65.8 L 66.0 L MCH 21.1 L 21.4 L MCHC 32.1 32.4 RDW 17.4 H 16.8 H Plt Count 197 188 MPV TNP TNP Immature Gran % (Auto) Neut % (Auto) Lymph % (Auto) Bent % (Auto) Eos % (Auto) Baso % (Auto) Lymph # (Auto) Bent # (Auto) Eos # (Auto) Baso # (Auto) Abs Immat Gran (auto) Absolute Neuts (auto) Absolute Nucleated RBC Band Neutrophils % Nucleated RBC % Platelet Estimate % Immature Plt Fraction 8.8 Anisocytosis Microcytosis Schistocytes Sodium 134 L 135 L Potassium 3.2 L 2.9 L Chloride 99 98 Carbon Dioxide 24 26 Anion Gap 11 11 BUN 33 H 31 H Creatinine 1.47 H 1.45 H Estim Creat Clear Calc 44 44 Estimated GFR 47 L 48 L Glucose 121 H 129 H POC Capillary Glucose 182 H Hemoglobin A1c 5.9 H Calcium 9.1 8.8 Magnesium Total Bilirubin AST ALT Alkaline Phosphatase Troponin I NT-Pro-B Natriuret Pep Total Protein Albumin Triglycerides 81 Cholesterol 143 LDL Cholesterol Direct 78 HDL Direct 38 Lipase 2128 H Influenza A (RT-PCR) Influenza B (RT-PCR) RSV (RT-PCR) SARS-CoV-2 RNA (RT-PCR) Quality VTE Prophylaxis VTE prophylaxis: mechanical ordered -Patient's previous records reviewed on admission -ER notes reviewed in detail on admission -discussed all findings and current treatment plan with patient/Family/POA -Consultations reviewed for recommendations -Patient's disposition for safe discharge discussed with therapeutic case manager -radiology imaging, EKG and test results I have personally reviewed and interpreted unless otherwise specified Dictation performed by [id number] direct speech recognition software, therefore hematology nurse educator variants and typographical errors may occur. Hospitalist MIPS Advance Care Plan I have confirmed that the patient's Advanced Care Plan is present, code status is documented, or surrogate decision maker is listed in patient medical record.: Yes Medication Reconciliation I have utilized all available resources to obtain, update and review the patients current medications (includes all prescriptions, OTC, herbals, cannabis, and nutritional supplements).: Yes The patient is not eligible for med reconciliation; the patient is in a emergent medical situation where delaying treatment would jeopardize the patients heal th.: No
--- NOTE | 2025-06-08 12:40 | P.CONGS_ITS ---
Assessment and Plan Assessment and plan (1) Ileus: Code(s): K56.7 - Ileus, unspecified Status: Acute Assessment and Plan: Patient presented to the hospital yesterday with 4 days of nausea and weakness. Denies any sick contacts, recent travel out of the country, new foods. Does state that he did consume some alcohol day night. No history of abdominal surgeries. Labs revealed normal white blood cell count with elevated lipase of 2128. A CT demonstrated dilated proximal small bowel loops with air-fluid levels and decompressed distal small bowel significant for small bowel obstruction or ileus. Patient denies any nausea or vomiting today. Passing flatus. Last bowel movement 2 days ago. Positive bowel sounds. * Will plan for small-bowel follow-through today. If patient develops nausea or increased pain will consider placement of NG tube. * Will continue to follow with serial abdominal exams and labs. (2) Pancreatitis: Qualifiers: Acute pancreatitis complication: unspecified Chronicity: acute P ancreatitis type: drug induced Qualified Code(s): K85.30 - Drug induced acute pancreatitis without necrosis or infection Code(s): K85.90 - Acute pancreatitis without necrosis or infection, unspecified Status: Acute Assessment and Plan: Lipase 2128. Continue to trend. Continue IV fluids and pain management. (3) CHATA (acute kidney injury): Code(s): N17.9 - Acute kidney failure, unspecified Status: Acute Assessment and Plan: Kidney function slowly improving. (4) Type 2 diabetes mellitus without complications: Code(s): E11.9 - Type 2 diabetes mellitus without complications Status: Acute (5) Essential (primary) hypertension: Code(s): I10 - Essential (primary) hypertension Status: Acute (6) Hyperlipidemia due to dietary fat intake: Code(s): E78.49 - Other hyperlipidemia Status: Acute (7) Acute hypokalemia: Code(s): E87.6 - Hypokalemia Status: Acute Assessment and Plan: Continue management per hospitalist. Given KCl 40 meq IV and 10 orally today. Plan Discussed patient's case and plan of care with Dr. Torres. History of Present Illness Consult details Consult date: 06/08/25 Reason for consult: other (SBO vs ileus) Requesting physician: Ely Gómez, [employer] [facility] Narrative: Patient is a 70-year-old male with history of diabetes, CKD, hypertension who we have been asked to see in surgical consultation for ileus versus small-bowel obstruction. Patient presented to the ED yesterday with complaints of weakness and nausea. He states that he 1st started having some nausea with vomiting last Thursday. He does endorse that he had a birthday constitution party and had ingested some alcoholic beverages. Nausea continued throughout the weekend and Thursday. Patient denies any known sick contacts. Denies any recent travel out of the country or any new foods. Denies any abdominal surgical history. States that his last bowel movement was 2 days ago. States that his bowel movements are usually pretty regular every day. He does state that he has been passing gas. Ate a small amount of breakfast this morning. Denies any nausea today. Normal WBC. Elevated lipase of 2128. CT demonstrated dilated proximal small-bowel loops with air- fluid levels and decompressed distal small bowel. No definitive transition site identified. Findings compatible with small-bowel obstruction or ileus. Currently being treated conservatively with bowel rest, IV fluids, and pain management. [facility] Past Medical History Medical History (Updated 06/08/25 @ 12:36 by Ely Gómez APRN) Fatty tumor removed Hyperlipidemia due to dietary fat intake Depression Stage 3a chronic kidney disease Vitamin B12 deficiency Vitamin D deficiency Intention tremor CKD (chronic kidney disease) stage 3, GFR 30-59 ml/min Erectile dysfunction Essential (primary) hypertension Type 2 diabetes mellitus without complications Surgical History Surgical History (Updated 06/08/25 @ 01:58 by Kimberly Luna APRN) H/O local excision of skin lesion Fatty tumor of forehead History of cardiac cath no intervention Family History Family History Mother Hypertension Heart disease Sibling Diabetes mellitus Social History Social History (Updated 06/08/25 @ 01:59 by Kimberly Luna APRN) Social History: He lives with his . He had 3 daughters but 1 passed and he has 2 stepsons. His is the durable power civil litigation attorney for healthcare. He is retired. Code status: Full code Smoking status: Never smoker Tobacco type: cigars (2/month) Alcohol intake: current Alcohol use details: occasionnally Substance use: never Substance use type: does not use Do You Feel Safe in your Home?: Yes Lack of Transportation: No Lack of Food: Never True Current Housing: I Have Housing Concerned About Future Housing: No Difficulty Paying Gas/Electric Bills: No Difficulty Paying for Meds: No Currently Unemployed: No Education: High School Diploma/GED Difficulty w/ Childcare or Family Care: No Living arrangements: with family Occupation/Education: retired Gender identity (if verbalized by the patient): Male Sexual Orientation (if Verbalized by the Patient): Straight or Heterosexual Spiritual care concerns: No Agree to blood products: Yes Meds Home Medications and Allergies Home Medications ?Medication ?Instructions ?Recorded ?Confirmed ?Type cholecalciferol (vitamin D3) 50 50 mcg PO DAILY #90 ta bs 07/22/23 06/07/25 Rx mcg (2,000 unit) tablet hydralazine 100 mg tablet 100 mg PO TID #270 tabs 10/0106/07/25 Rx metformin 500 mg tablet,extended 1,000 mg (2 x 500 mg) PO DAILY 10/24/24 06/07/25 Rx release 24 hr #180 tabs carvedilol 25 mg tablet 25 mg PO BID 12/20/24 History losartan 100 1 tablet PO DAILY #90 tabs 0 12/20/24 06/07/25 Rx mg-hydrochlorothiazide 25 mg tablet potassium chloride 10 mEq 10 meq PO DAILY #90 caps 06/07/25 Rx capsule,extended release amlodipine 10 mg tablet 10 mg PO DAILY #90 tabs 12/0206/07/25 Rx blood sugar diagnostic (OneTouch #100 ea 01/19/2512/25 Rx Ultra Test strips) blood-glucose meter (OneTouch #1 ea 01/19/25 06/07/25 Rx Ultra2 Meter) lancets 30 gauge (OneTouch #100 ea 01/19/25 06/07/25 R x UltraSoft 2 Lancet) cyanocobalamin (vitamin B-12) 1,000 mcg PO DAILY #90 t abs 05/15/25 06/07/25 Rx 1,000 mcg sublingual tablet atorvastatin 10 mg tablet (Lipitor) 10 mg PO QHS #90 t abs 05/18/25 06/07/25 Rx tirzepatide 10 mg/0.5 mL 10 mg (0.5 mL) subcut WEEKLY #2 mL 05/31/25 06/07/25 Rx subcutaneous pen injector (Naomi) ondansetron 8 mg disintegrating 8 mg PO Q8H PRN nausea and 06/07/25 06/07/25 Rx tablet vomiting #15 tabs Allergies Allergy/AdvReac Type Severity Reaction Status Date / Time No Known Allergies Allergy Verified 06/08/25 02:07 Vital Signs Vital Signs - 24 hr 06/07/25 16:26 06/07/25 19:00 06/07/25 19:01 Temperature 99.0 F Pulse Rate 103 H 99 100 Respiratory Rate 20 21 H 21 H Blood Pressure 112/80 150/107 H Pulse Oximetry 100 100 100 Oxygen Delivery 06/07/25 19:15 06/07/25 19:16 06/07/25 19:24 Temperature 97.9 F Pulse Rate 95 94 98 Respiratory Rate 19 19 20 Blood Pressure 168/117 H 147/109 H Pulse Oximetry 100 Oxygen Delivery 06/07/25 19:25 06/07/25 19:30 06/07/25 19:31 Temperature 97.9 F Pulse Rate 88 90 87 Respiratory Rate 14 10 L 12 Blood Pressure 147/109 H 158/111 H Pulse Oximetry 100 100 100 Oxygen Delivery 06/07/25 20:31 06/07/25 21:30 06/07/25 22:25 Temperature Pulse Rate 92 95 86 Respiratory Rate 14 15 Blood Pressure 153/112 H 178/119 H Pulse Oximetry 100 97 99 Oxygen Delivery 06/07/25 22:29 06/07/25 23:31 06/07/25 23:35 Temperature 97.5 F L Pulse Rate 100 Respiratory Rate 16 Blood Pressure 158/106 H 161/103 H 143/93 H Pulse Oximetry 100 Oxygen Delivery 06/08/25 04:00 06/08/25 05:15 06/08/25 06:00 Temperature 99.5 F Pulse Rate 98 100 Respiratory Rate 18 Blood Pressure 155/93 H 149/102 H Pulse Oximetry 100 Oxygen Delivery 06/08/25 08:00 06/08/25 08:00 06/08/25 08:55 Temperature Pulse Rate 100 88 Respiratory Rate Blood Pressure Pulse Oximetry Oxygen Delivery Room Air Exam 2 Const: General: comfortable and no acute distress Neck: Neck: supple and no JVD Resp: Effort & Inspection: normal respiratory effort Cardio: Rate: regular rate GI: Inspection: non-distended GI Palp: Yes Soft to palpation, Yes Tenderness to palpation present (GI) (diffusely across lower abdomen) and Yes Guarding due to palpation present (GI) (mild guarding RLQ) : General: Yes bladder normal to palpation Skin: General skin exam: normal color and no rashes or lesions noted Neuro: General: gait normal Speech: normal speech Sensory Exam: normal sensation Extrem: General: normal to inspection Psych: Mental Status: mental status grossly normal Results Labs 06/08/25 06:00 06/08/25 06:00 Labs: Abnormal lab results 06/07/25 06/08/25 06/08/25 Range/Units 19:09 01:48 06:00 RBC 6.77 H (4.6-6.20) M/mm3 Hgb 12.9 L 12.7 L (14.0-18.0) g/dL Hct 40.2 L 39.2 L (42.0-52.0) % MCV 66.3 L 65.8 L 66.0 L (80-100) fl MCH 21.3 L 21.1 L 21.4 L (26-34) pg RDW 18.2 H 17.4 H 16.8 H (11.5-14.5) % MPV 10.5 H (7.4-10.4) fl Lymph % (Auto) 12.5 L (18.3-44.2) % [place] % (Auto) 14.3 H (2.6-8.5) % Lymph # (Auto) 0.77 L (0.9-3.2) K/mm3 [place] # (Auto) 0.9 H (0.1-0.6) K/mm3 Sodium 135 L 134 L 135 L (137-145) mmol/L Potassium 2.9 L 3.2 L 2.9 L (3.4-5.0) mmol/L Chloride 92 L (98-107) mmol/L Carbon Dioxide 32 H (22-30) mmol/L BUN 41 H D 33 H 31 H (9-20) mg/dL Creatinine 2.09 H 1.47 H 1.45 H (0.7-1.3) mg/dL Estimated GFR 32 L 47 L 48 L (59 - ) Glucose 177 H 121 H 129 H (65-110) mg/dL POC Capillary Glucose (65-105) mg/dl Hemoglobin A1c 5.9 H (<5.7) % NT-Pro-B Natriuret Pep 134 H (19.9-100) pg/mL Total Protein 9.2 H (6.3-8.2) g/dL Lipase 2055 H 2128 H (23-300) U/L 06/08/25 Range/Units 11:26 RBC (4.6-6.20) M/mm3 Hgb (14.0-18.0) g/dL Hct (42.0-52.0) % MCV (80-100) fl MCH (26-34) pg RDW (11.5-14.5) % MPV (7.4-10.4) fl Lymph % (Auto) (18.3-44.2) % Bea[place]gard % (Auto) (2.6-8.5) % Lymph # (Auto) (0.9-3.2) K/mm3 [place] # (Auto) (0.1-0.6) K/mm3 Sodium (137-145) mmol/L Potassium (3.4-5.0) mmol/L Chloride (98-107) mmol/L Carbon Dioxide (22-30) mmol/L BUN (9-20) mg/dL Creatinine (0.7-1.3) mg/dL Estimated GFR (59 - ) Glucose (65-110) mg/dL POC Capillary Glucose 182 H (65-105) mg/dl Hemoglobin A1c (<5.7) % NT-Pro-B Natriuret Pep (19.9-100) pg/mL Total Protein (6.3-8.2) g/dL Lipase (23-300) U/L Diabetes panel 06/07/25 06/08/25 06/08/25 Range/Units 19:09 01:48 06:00 Sodium 135 L 134 L 135 L (137-145) mmol/L Potassium 2.9 L 3.2 L 2.9 L (3.4-5.0) mmol/L Chloride 92 L 99 98 (98-107) mmol/L Carbon Dioxide 32 H 24 26 (22-30) mmol/L BUN 41 H D 33 H 31 H (9-20) mg/dL Creatinine 2.09 H 1.47 H 1.45 H (0.7-1.3) mg/dL Glucose 177 H 121 H 129 H (65-110) mg/dL Hemoglobin A1c 5.9 H (<5.7) % Calcium 9.6 9.1 8.8 (8.4-10.2) mg/dL AST 17 (17-59) U/L ALT 19 (6-50) U/L Alkaline Phosphatase 63 (38-126) U/L Total Protein 9.2 H (6.3-8.2) g/dL Albumin 4.8 (3.5-5.1) g/dL Triglycerides 81 (<150) mg/dL Calcium panel 06/07/25 06/08/25 06/08/25 Range/Units 19: 01:48 06:00 Calcium 9.6 9.1 8.8 (8.4-10.2) mg/dL Albumin 4.8 (3.5-5.1) g/dL Pituitary panel 06/07/25 06/08/25 06/08/25 Range/Units 19: 01:48 06:00 Sodium 135 L 134 L 135 L (137-145) mmol/L Potassium 2.9 L 3.2 L 2.9 L (3.4-5.0) mmol/L Chloride 92 L 99 98 (98-107) mmol/L Carbon Dioxide 32 H 24 26 (22-30) mmol/L BUN 41 H D 33 H 31 H (9-20) mg/dL Creatinine 2.09 H 1.47 H 1.45 H (0.7-1.3) mg/dL Glucose 177 H 121 H 129 H (65-110) mg/dL Calcium 9.6 9.1 8.8 (8.4-10.2) mg/dL Adrenal panel 06/07/25 06/08/25 06/08/25 Range/Units 19: 01:48 06:00 Sodium 135 L 134 L 135 L (137-145) mmol/L Potassium 2.9 L 3.2 L 2.9 L (3.4-5.0) mmol/L Chloride 92 L 99 98 (98-107) mmol/L Carbon Dioxide 32 H 24 26 (22-30) mmol/L BUN 41 H D 33 H 31 H (9-20) mg/dL Creatinine 2.09 H 1.47 H 1.45 H (0.7-1.3) mg/dL Glucose 177 H 121 H 129 H (65-110) mg/dL Calcium 9.6 9.1 8.8 (8.4-10.2) mg/dL Total Bilirubin 1.1 (0.2-1.3) mg/dL AST 17 (17-59) U/L ALT 19 (6-50) U/L Alkaline Phosphatase 63 (38-126) U/L Total Protein 9.2 H (6.3-8.2) g/dL Albumin 4.8 (3.5-5.1) g/dL All other labs normal.
--- OUTSIDE RECORDS SUMMARY | 2025-06-08 15:11 | XMS_ITS | Clinical Summary ---
Author Organization [facility] Address [address] [place] [address] Care Team Providers Care Flight Manager Name Role Phone Faraz Mortensen MD Primary Care Provider [phone] Allergies No known active allergies Social History [...] of 2) 2006 COVID-19 Vaccine (2 - 2024-2 6 season) 2025 10/18/2020 Influenza Adult (#1) 2025 07/10/2020 RSV Immunization or 60+ Years (1 - 1-dose 75+ series) 2031 Hepatitis A Vaccines Aged Out No long er eligible based on patient's age to complete this topic Meningococcal B Vaccine Aged Out No l onger eligible based on patient's age to complete this topic Meningococcal Vaccine Aged Out No shady prosper eligible based on patient's age to complete this topic RSV Immunizations Under 20 Months Aged Out No longer eligible based on patient's age to complete this topic Insurance MEDICARE PART A Care Teams Flight Manager Relationship Specialty Start Date End Date Faraz Mortensen MD [address] [place] [address] PCP - General FAMILY PRACTICE 11/12/20
--- OUTSIDE RECORDS SUMMARY | 2025-06-08 15:41 | XMS_ITS | Clinical Summary ---
Author Organization [facility] Address [address] [place] [phone] Phone Care Team Providers Care Salesperson [employer] Name Role Phone Nader Aceves MD Primary [...] 1 Active Cholecalciferol (Vitamin D3) 1.25 MG (45458 UT) capsule Take 1 capsule by mouth [...] on file Legal Sex Male 2:33 PM [facility] Gender Identity Not on file [...] (#1) 2025 07/10/2020 Insurance [employer] [facility] Address: [address] [id number] Care Teams Salesperson [employer] Relationship Specialty Start Date End Date Nader Aceves MD [address] [place], [place] [id number] PCP - General Internal Medicine 11/11/21
--- OUTSIDE RECORDS SUMMARY | 2025-06-08 15:41 | XMS_ITS | Clinical Summary ---
Author Organization [facility] Address [address] [place] [address] Care Team Providers Care Ceramic Chemist Name Role Phone Faraz Mortensen MD Primary Care Provider [phone] Allergies No known active allergies Social History [...] topic Insurance MEDICARE PART A Care Teams Ceramic Chemist Relationship Specialty Start Date End Date Faraz Mortensen MD [address] [place] [address] PCP - General FAMILY PRACTICE 11/12/20
[2025-06-08] MEDS: ONDANSETRON INJ 4 MG/2 ML VIAL IV PUSH (20:51)
[2025-06-09] VITALS (9 sets, daily range): BP systolic 130–162; BP diastolic 83–106; PULSE 72–99; RESP 16–18; TEMP 36.2–37; O2SAT 98–100
[2025-06-09] MEDS: SODIUM CHLORIDE 0.9% IV 1,000 ML 100 ML IV CONT ×3 (04:38→21:09)
[2025-06-09 06:43] LABS: Hematocrit 39.8 % (42.0-52.0); Hemoglobin 12.7 g/dL (14.0-18.0); Immature Platelet Fraction Pct 9.1 % (0.9-11.2); Mean Corpuscular HGB Conc 31.9 g/dl (32-36); Mean Corpuscular Hemoglobin 21.4 pg (26-34); Mean Corpuscular Volume 67.1 fl (80-100); Platelet Count Result 174 k/mm3 (150-375); Red Blood Count 5.93 M/mm3 (4.6-6.20); White Blood Count 4.7 K/mm3 (4.5-10.0)
[2025-06-09 07:05] LABS: Alanine Aminotransferase 16 U/L (6-50); Albumin Level 4.2 g/dL (3.5-5.1); Alkaline Phosphatase 60 U/L (38-126); Anion Gap 10 mmol/L (4-12); Aspartate Amino Transferase 17 U/L (17-59); Bilirubin,Total 1.1 mg/dL (0.2-1.3); Blood Urea Nitrogen 28 mg/dL (9-20); Calcium 9.1 mg/dL (8.4-10.2); Carbon Dioxide 25 mmol/L (22-30); Chloride 100 mmol/L (98-107); Estimated CRCL calculation 50 ml/min; Estimated Glomerular Filt Rate 56; Glucose 115 mg/dL (65-110); Magnesium 1.7 mg/dL (1.6-2.3); Potassium 3.1 mmol/L (3.4-5.0); Sodium 135 mmol/L (137-145); Total Protein 7.8 g/dL (6.3-8.2)
[2025-06-09] MEDS: POTASSIUM CHLORIDE 10 MEQ ER TABLET PO (09:31)
--- NOTE | 2025-06-09 10:39 | P.PNGS_ITS ---
Progress Note: A&P Assessment and Plan (1) Ileus: Code(s): K56.7 - Ileus, unspecified Status: Acute Assessment and Plan: * Small-bowel follow-through demonstrated delayed gastric emptying suggestive of gastroparesis. Mild delay in contrast progression through otherwise diffusely normal appearing caliber small bowel which would be more consistent with ileus than obstruction. Patient has had multiple bowel movements since this time. Denies any nausea or vomiting this morning. Tolerating clear liquids. Will advance to soft diet. * Will continue to follow with serial abdominal exams and labs. (2) Pancreatitis: Qualifiers: Acute pancreatitis complication: unspecified Chronicity: acute Pancreatitis type: drug induced Qualified Code(s): K85.30 - Drug induced acute pancreatitis without necrosis or infection Code(s): K85.90 - Acute pancreatitis without necrosis or infection, unspecified Status: Acute Assessment and Plan: Lipase yesterday 2127. Pending for today at tis time. Continue to trend. Continue IV fluids and pain management. (3) CHATA (acute kidney injury): Code(s): N17.9 - Acute kidney failure, unspecified Status: Acute Assessment and Plan: Kidney function slowly improving. (4) Type 2 diabetes mellitus without complications: Code(s): E11.9 - Type 2 diabetes mellitus without complications Status: Acute (5) Essential (primary) hypertension: Code(s): I10 - Essential (primary) hypertension Status: Acute (6) Hyperlipidemia due to dietary fat intake: Code(s): E78.49 - Other hyperlipidemia Status: Acute (7) Acute hypokalemia: Code(s): E87.6 - Hypokalemia Status: Acute Assessment and Plan: 3.1 today. Continue management per hospitalist. Given KCl 40 meq PO today, as well as daily 10 meq dose. Plan Discussed patient's case and plan of care with Dr. Torres. Subjective Subjective Date/Time Seen: 06/09/25 10:39 Patient reports: no new complaints, feels better, tolerating liquids well, bowel movement and afebrile Interval history: Patient doing well today. Sitting up in chair. Multiple bowel movements after small-bowel follow-through yesterday. Tolerating liquid diet. Exam Const: General: comfortable and no acute distress Neck: Neck: supple and no JVD GI: Inspection: non-distended GI Palp: Yes Soft to palpation, No Tenderness to palpation present (GI) and No Guarding due to palpation present (GI) Auscultation: normal bowel sounds Objective Data Vital Signs Vital Signs: Vital Signs - 24 hr 06/08/25 12:00 06/08/25 16:00 06/08/25 17:17 Temperature 98.1 F Pulse Rate 88 90 94 Respiratory Rate 16 Blood Pressure 107/83 Pulse Oximetry 98 06/08/25 20:00 06/08/25 20:00 06/08/25 20:52 Temperature 98.8 F Pulse Rate 89 104 H 100 Respiratory Rate 17 Blood Pressure 163/105 H Pulse Oximetry 99 06/08/25 22:00 06/09/25 00:00 06/09/25 04:00 Temperature 98.8 F 98.6 F Pulse Rate 89 93 95 Respiratory Rate 17 18 Blood Pressure 165/105 H 132/97 H Pulse Oximetry 99 99 06/09/25 10:24 Temperature 97.3 F L Pulse Rate 97 Respiratory Rate 16 Blood Pressure 140/99 H Pulse Oximetry 100 Intake/Output Intake/Output: Intake & Output 06/06/25 06/07/25 06/08/25 06/09/25 23:59 23:59 23:59 23:59 Intake Total 1000 1650 661.7 Output Total 750 450 Balance 1000 900 211.7 Meds/Results Medications: Active Medications Generic Name Dose Route Start Last Admin Trade Name Freq PRN Reason Stop Dose Admin Amlodipine Besylate 10 mg 06/08/25 09:00 06/09/25 09:31 Amlodipine Besylate 10 Mg Tablet PO 10 mg DAILY [facility] Administration Atorvastatin Calcium 10 mg 06/08/25 21:00 06/08/25 20:52 Atorvastatin 10 Mg Tablet PO Not Given QHS [facility] Carvedilol 25 mg 06/08/25 09:00 06/09/25 09:31 Carvedilol 25 Mg Tablet PO 25 mg Q12HR MEG Administration Dextrose 12.5 gm 06/08/25 01:31 Dextrose 50% 25 Gm/50 Ml Syringe IV PUSH PRN PRN Hypoglycemia Protocol Glucagon 1 mg 06/08/25 01:31 Glucagon For Inj 1 Mg Vial IM PRN PRN Hypoglycemia Protocol Glucose 15 gm 06/08/25 01:31 Glucose Oral Gel 15 Gm Of Glucse In 37.5 Gm Tube PO PRN PRN Hypoglycemia Protocol Hydralazine HCl 10 mg 06/07/25 21:48 06/08/25 20:51 Hydralazine Hcl 20 Mg/Ml Vial IV PUSH 10 mg Q8H PRN Administration Blood Pressure - High Hydromorphone HCl 0.5 mg 06/08/25 12:38 Hydromorphone Hcl Inj (*Crx) 1 Mg/Ml Syr IV PUSH Q3H PRN Pain Rated 7-10 Dextrose 1,000 mls @ 100 mls/hr 06/08/25 01:31 Dextrose 5% 1,000 Ml IVPB PRN PRN Hypoglycemia Protocol Sodium Chloride 1,000 mls @ 100 mls/hr 06/08/25 02:35 06/09/25 09:30 Normal Saline Iv IV CONT Not Given .Q10H [facility] Insulin Aspart 2 - 5 units 06/08/25 08:00 06/09/25 09:30 Insulin Aspart (*Bkc) 100 Units/Ml SUB-Q Not Given TIDWM MEG Protocol Ondansetron HCl 4 mg 06/07/25 21:52 06/08/25 20:51 Ondansetron Inj 4 Mg/2 Ml Vial IV PUSH 4 mg Q4H PRN Administration Nausea And Vomiting Potassium Chloride 10 meq 06/08/25 09:00 06/09/25 09:31 Potassium Chloride 10 Meq Er Tablet PO 10 meq DAILY MEG Administration Potassium Chloride 40 meq 06/09/25 10:35 Potassium Chloride 20 Meq Packet (For Liquid) PO 06/09/25 10:36 ONCE ONE Radiology Results: ITS Impressions Chest X-Ray 06/07/25 19:03 IMPRESSION: No acute findings. Abdomen/Pelvis CT 06/07/25 20:19 IMPRESSION: 1. Dilated proximal small bowel loops with air-fluid levels and decompressed distal small bowel. No definitive transition site identified. Findings compatible with small bowel obstruction or ileus. Consider correlation with small bowel follow-through. 2: Reticulonodular densities of the lower lobes and right middle lobe, suspicious for infection. Small Bowel X-Ray 06/08/25 16:47 IMPRESSION: 1. Delayed gastric emptying suggestive of gastroparesis. 2. Mild delay in contrast progression through otherwise diffusely normal appearing caliber small bowel which would be more consistent with ileus than obstruction. Labs Labs: Laboratory Results - last 24 hr 06/08/25 06/08/25 06/08/25 11:26 17:09 20:09 WBC RBC Hgb Hct MCV MCH MCHC RDW Plt Count MPV % Immature Plt Fraction Sodium Potassium Chloride Carbon Dioxide Anion Gap BUN Creatinine Estim Creat Clear Calc Estimated GFR Glucose POC Capillary Glucose 182 H 146 H 180 H Calcium Magnesium Total Bilirubin AST ALT Alkaline Phosphatase Total Protein Albumin 06/09/25 06/09/25 06:09 07:48 WBC 4.7 RBC 5.93 Hgb 12.7 L Hct 39.8 L MCV 67.1 L MCH 21.4 L MCHC 31.9 L RDW 17.2 H Plt Count 174 MPV TNP % Immature Plt Fraction 9.1 Sodium 135 L Potassium 3.1 L Chloride 100 Carbon Dioxide 25 Anion Gap 10 BUN 28 H Creatinine 1.28 Estim Creat Clear Calc 50 Estimated GFR 56 L Glucose 115 H POC Capillary Glucose 127 H Calcium 9.1 Magnesium 1.7 Total Bilirubin 1.1 AST 17 ALT 16 Alkaline Phosphatase 60 Total Protein 7.8 Albumin 4.2
[2025-06-09 10:50] LABS: Lipase 481 U/L (23-300)
[2025-06-09] MEDS: POTASSIUM CHLORIDE 20 MEQ PACKET (FOR LIQUID) 40 MEQ PO (11:43)
--- NOTE | 2025-06-09 13:21 | P.PNIM_ITS ---
Progress Note: A&P Assessment and Plan (1) Pancreatitis: Qualifiers: Acute pancreatitis complication: unspecified Chronicity: acute Pancreatitis type: drug induced Qualified Code(s): K85.30 - Drug induced acute pancreatitis without necrosis or infection Code(s): K85.90 - Acute pancreatitis without necrosis or infection, unspecified Status: Acute Assessment and Plan: -CT of abdomen/pelvic IMPRESSION: Dilated proximal small bowel loops with air- fluid levels and decompressed distal small bowel. No definitive transition site identified. Findings compatible with small bowel obstruction or ileus. Consider correlation with small bowel follow-through. Reticulonodular densities of the lower lobes and right middle lobe, suspicious for infection. Lipase 2054 POA. * Trend lipase * Continue IV fluids * Full liquid advance per surgery * Pain managed with IV Dilaudid * Antiemetics (2) Ileus: Code(s): K56.7 - Ileus, unspecified Status: Acute Assessment and Plan: CT abdomen showing possible ileus versus SBO, patient reports flatulence no BM but minimal abdominal pain be secondary to pancreatitis and use of to Tirzepatide . * Consult general surgery evaluation appreciate any recommendations * Full liquid advance as tolerated * IV fluids * Encourage activity * Holding Tirzepatide * Serial imaging * May need f/U with GI outpatient for gastroparesis testing (3) CHATA (acute kidney injury): Code(s): N17.9 - Acute kidney failure, unspecified Status: Acute Assessment and Plan: This is acute on chronic. Stage III renal disease. Most likely secondary to dehydration with the nausea and poor appetite. Initially his creatinine was 2.09 and is down to 1.47 with fluids. And this is his baseline. 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 * tirzepatide is on hold * Hypoglycemic protocol (6) Hyperlipidemia due to dietary fat intake: Code(s): E78.49 - Other hyperlipidemia Status: Acute Assessment and Plan: * continue with atorvastatin (7) Essential (primary) hypertension: Code(s): I10 - Essential (primary) hypertension Status: Acute Assessment and Plan: * Will resume patient's carvedilol, amlodipine and losartan once tolerating oral intake * Monitor BP per unit protocol Plan Code status: Full code per patient DVT prophylaxis: SCDs Stress ulcer prophylaxis: NA PT/OT notes: Ambulatory Disposition: Patient continues admission for acute pancreatitis and ileus general surgical evaluation will continue with bowel rest advance diet as tolerated. Patient ambulatory on plan is to return home at discharge when stable. Time Spent With Patient Time with patient: 15 - 25 minutes Subjective Date/time seen: 06/09/25 13:21 Interval history: Patient is a 70-year-old male admitted for further evaluation and treatment acute pancreatitis and hypokalemia, CHATA, possible SBO versus ileus. 06/09/2025: Patient comfortable tolerate full liquid diet, Denies any N/V minimal ABD discomfort and reports flatulence but no BM. Small bowel follow-through more consistent with ileus versus SBO. Review of Systems Review of Systems: All systems reviewed & are unremarkable except as noted in HPI and below Exam Const: General: comfortable and no acute distress HENMT: Ears: TM's normal bilaterally Face/Nose/Sinus: Normal nares present Mouth: Yes moist mucous membranes Eyes: General: appearance normal, both eyes and all related structures Sclera: sclerae normal Pupils: Equal, round and reactive pupils present Neck: Neck: supple and no JVD Resp: Effort & Inspection: normal respiratory effort Auscultation: clear to auscultation bilaterally Cardio: Rate: regular rate Rhythm: regular rhythm GI: Auscultation: abnormal bowel sounds (Hypoactive) Skin: General skin exam: normal color and no rashes or lesions noted Wounds: no wounds Neuro: General: gait normal Cranial nerves: Yes Equal, round and reactive pupils present Speech: normal speech Motor exam (neuro): 5 motor strength present throughout Sensory Exam: normal sensation Extrem: General: normal to inspection Psych: Mental Status: mental status grossly normal Affect: normal affect Objective Data Vital Signs Vital Signs: Vital Signs - 24 hr 06/08/25 16:00 06/08/25 17:17 06/08/25 20:00 Temperature 98.1 F 98.8 F Pulse Rate 90 94 89 Respiratory Rate 16 17 Blood Pressure 107/83 163/105 H Pulse Oximetry 98 99 Oxygen Delivery 06/08/25 20:00 06/08/25 20:52 06/08/25 22:00 Temperature 98.8 F Pulse Rate 104 H 100 89 Respiratory Rate 17 Blood Pressure 165/105 H Pulse Oximetry 99 Oxygen Delivery 06/09/25 00:00 06/09/25 04:00 06/09/25 08:00 Temperature 98.6 F Pulse Rate 93 95 Respiratory Rate 18 Blood Pressure 132/97 H Pulse Oximetry 99 Oxygen Delivery Room Air 06/09/25 08:00 06/09/25 10:24 Temperature 97.3 F L Pulse Rate 97 97 Respiratory Rate 16 Blood Pressure 140/99 H Pulse Oximetry 100 Oxygen Delivery Intake/Output Intake/Output: Intake & Output 06/06/25 06/07/25 06/08/25 06/09/25 23:59 23:59 23:59 23:59 Intake Total 1000 1650 661.7 Output Total 750 450 Balance 1000 900 211.7 Meds/Results Medications: Active Medications Generic Name Dose Route Start Last Admin Trade Name Freq PRN Reason Stop Dose Admin Amlodipine Besylate 10 mg 06/08/25 09:00 06/09/25 09:31 Amlodipine Besylate 10 Mg Tablet PO 10 mg DAILY MEG Administration Atorvastatin Calcium 10 mg 06/08/25 21:00 06/08/25 20:52 Atorvastatin 10 Mg Tablet PO Not Given QHS MEG Carvedilol 25 mg 06/08/25 09:00 06/09/25 09:31 Carvedilol 25 Mg Tablet PO 25 mg Q12HR MEG Administration Dextrose 12.5 gm 06/08/25 01:31 Dextrose 50% 25 Gm/50 Ml Syringe IV PUSH PRN PRN Hypoglycemia Protocol Glucagon 1 mg 06/08/25 01:31 Glucagon For Inj 1 Mg Vial IM PRN PRN Hypoglycemia Protocol Glucose 15 gm 06/08/25 01:31 Glucose Oral Gel 15 Gm Of Glucse In 37.5 Gm Tube PO PRN PRN Hypoglycemia Protocol Hydralazine HCl 10 mg 06/07/25 21:48 06/08/25 20:51 Hydralazine Hcl 20 Mg/Ml Vial IV PUSH 10 mg Q8H PRN Administration Blood Pressure - High Hydromorphone HCl 0.5 mg 06/08/25 12:38 Hydromorphone Hcl Inj (*Crx) 1 Mg/Ml Syr IV PUSH Q3H PRN Pain Rated 7-10 Dextrose 1,000 mls @ 100 mls/hr 06/08/25 01:31 Dextrose 5% 1,000 Ml IVPB PRN PRN Hypoglycemia Protocol Sodium Chloride 1,000 mls @ 100 mls/hr 06/08/25 02:35 06/09/25 09:30 Normal Saline Iv IV CONT Not Given .Q10H [facility] Insulin Aspart 2 - 5 units 06/08/25 08:00 06/09/25 11:47 Insulin Aspart (*Bkc) 100 Units/Ml SUB-Q Not Given TIDWM [facility] Protocol Ondansetron HCl 4 mg 06/07/25 21:52 06/08/25 20:51 Ondansetron Inj 4 Mg/2 Ml Vial IV PUSH 4 mg Q4H PRN Administration Nausea And Vomiting Potassium Chloride 10 meq 06/08/25 09:00 06/09/25 09:31 Potassium Chloride 10 Meq Er Tablet PO 10 meq DAILY MGE Administration Radiology Results: ITS Impressions Chest X-Ray 06/07/25 19:03 IMPRESSION: No acute findings. Abdomen/Pelvis CT 06/07/25 20:19 IMPRESSION: 1. Dilated proximal small bowel loops with air-fluid levels and decompressed distal small bowel. No definitive transition site identified. Findings sergo tible with small bowel obstruction or ileus. Consider correlation with small bowel follow-through. 2: Reticulonodular densities of the lower lobes and right middle lobe, suspicious for infection. Small Bowel X-Ray 06/08/25 16:47 IMPRESSION: 1. Delayed gastric emptying suggestive of gastroparesis. 2. Mild delay in contrast progression through otherwise diffusely normal appearing caliber small bowel which would be more consistent with ileus than obstruction. Labs Labs: Laboratory Results - last 24 hr 11/06/25 11/06/25 11/07/25 17:09 20:09 06:09 WBC 4.7 RBC 5.93 Hgb 12.7 L Hct 39.8 L MCV 67.1 L MCH 21.4 L MCHC 31.9 L RDW 17.2 H Plt Count 174 MPV TNP % Immature Plt Fraction 9.1 Sodium 135 L Potassium 3.1 L Chloride 100 Carbon Dioxide 25 Anion Gap 10 BUN 28 H Creatinine 1.28 Estim Creat Clear Calc 50 Estimated GFR 56 L Glucose 115 H POC Capillary Glucose 146 H 180 H Calcium 9.1 Magnesium 1.7 Total Bilirubin 1.1 AST 17 ALT 16 Alkaline Phosphatase 60 Total Protein 7.8 Albumin 4.2 Lipase 481 H 06/09/25 06/09/25 07:48 11:42 WBC RBC Hgb Hct MCV MCH MCHC RDW Plt Count MPV % Immature Plt Fraction Sodium Potassium Chloride Carbon Dioxide Anion Gap BUN Creatinine Estim Creat Clear Calc Estimated GFR Glucose POC Capillary Glucose 127 H 182 H Calcium Magnesium Total Bilirubin AST ALT Alkaline Phosphatase Total Protein Albumin Lipase Quality VTE Prophylaxis VTE prophylaxis: mechanical ordered -Patient's previous records reviewed on admission -ER notes reviewed in detail on admission -discussed all findings and current treatment plan with patient/Family/POA -Consultations reviewed for recommendations -Patient's disposition for safe discharge discussed with cyanide case hardener -radiology imaging, EKG and test results I have personally reviewed and interpreted unless otherwise specified Dictation performed by [employer] direct speech recognition software, therefore transitions manager variants and typographical errors may occur. Hospitalist MIPS Advance Care Plan I have confirmed that the patient's Advanced Care Plan is present, code status is documented, or surrogate decision maker is listed in patient medical record.: Yes Medication Reconciliation I have utilized all available resources to obtain, update and review the patients current medications (includes all prescriptions, OTC, herbals, cannabis, and nutritional supplements).: Yes The patient is not eligible for med reconciliation; the patient is in a emergent medical situation where delaying treatment would jeopardize the patients health.: No
[2025-06-09] MEDS: ATORVASTATIN 10 MG TABLET PO (21:08)
[2025-06-09 21:36] LABS: Potassium 3.2 mmol/L (3.4-5.0)
[2025-06-10] VITALS: BP 130/95; PULSE 79; PULSE 81; RESP 16; TEMP 36.8; O2SAT 100
[2025-06-10 04:00] VITALS: BP 118/86; PULSE 78; PULSE 81; RESP 16; TEMP 36.7; O2SAT 100
[2025-06-10 06:00] VITALS: BP 118/86; PULSE 81; RESP 16; TEMP 36.7; O2SAT 100
[2025-06-10 07:46] LABS: Hematocrit 37.5 % (42.0-52.0); Hemoglobin 11.6 g/dL (14.0-18.0); Immature Platelet Fraction Pct 10.3 % (0.9-11.2); Mean Corpuscular HGB Conc 30.9 g/dl (32-36); Mean Corpuscular Hemoglobin 21.1 pg (26-34); Mean Corpuscular Volume 68.1 fl (80-100); Platelet Count Result 167 k/mm3 (150-375); Red Blood Count 5.51 M/mm3 (4.6-6.20); White Blood Count 5.5 K/mm3 (4.5-10.0)
[2025-06-10 08:00] VITALS: BP 133/87; PULSE 88; PULSE 91; RESP 17; TEMP 36.6; O2SAT 100
[2025-06-10 08:02] LABS: Alanine Aminotransferase 15 U/L (6-50); Albumin Level 3.9 g/dL (3.5-5.1); Alkaline Phosphatase 40 U/L (38-126); Anion Gap 10 mmol/L (4-12); Aspartate Amino Transferase 20 U/L (17-59); Bilirubin,Total 1.0 mg/dL (0.2-1.3); Blood Urea Nitrogen 29 mg/dL (9-20); Calcium 9.1 mg/dL (8.4-10.2); Carbon Dioxide 25 mmol/L (22-30); Chloride 100 mmol/L (98-107); Estimated CRCL calculation 43 ml/min; Estimated Glomerular Filt Rate 46; Glucose 235 mg/dL (65-110); Magnesium 1.9 mg/dL (1.6-2.3); Potassium 3.2 mmol/L (3.4-5.0); Sodium 135 mmol/L (137-145); Total Protein 7.1 g/dL (6.3-8.2)
[2025-06-10 08:14] VITALS: PULSE 91
[2025-06-10] MEDS: POTASSIUM CHLORIDE 20 MEQ ER TABLET 40 MEQ PO (08:14)
[2025-06-10] MEDS: INSULIN ASPART (*BKC) 100 UNITS/ML SUB-Q (08:14)
[2025-06-10] MEDS: LOSARTAN POTASSIUM 100 MG TABLET PO (08:14)
[2025-06-10 08:40] LABS: Lipase 650 U/L (23-300)
[2025-06-10] MEDS: POTASSIUM CHLORIDE 20 MEQ PACKET (FOR LIQUID) 40 MEQ PO (09:22)
[2025-06-10 12:13] VITALS: BP 111/79; PULSE 79
--- NOTE | 2025-06-10 12:24 | P.PNIM_ITS ---
Progress Note: A&P Assessment and Plan (1) Pancreatitis: Qualifiers: Acute pancreatitis complication: unspecified Chronicity: acute Pancreatitis type: drug induced Qualified Code(s): K85.30 - Drug induced acute pancreatitis without necrosis or infection Code(s): K85.90 - Acute pancreatitis without necrosis or infection, unspecified Status: Acute Assessment and Plan: -CT of abdomen/pelvic IMPRESSION: Dilated proximal small bowel loops with air- fluid levels and decompressed distal small bowel. No definitive transition site identified. Findings compatible with small bowel obstruction or ileus. Consider correlation with small bowel follow-through. Reticulonodular densities of the lower lobes and right middle lobe, suspicious for infection. Lipase 2054 POA. * Trend lipase * Continue IV fluids * Full liquid advance per surgery * Pain managed with IV Dilaudid * Antiemetics (2) Ileus: Code(s): K56.7 - Ileus, unspecified Status: Acute Assessment and Plan: CT abdomen showing possible ileus versus SBO, patient reports flatulence no BM but minimal abdominal pain be secondary to pancreatitis and use of to Tirzepatide . Small bowel follow-through with more consistent with ileus which seems to resolved but does show some possible gastroparesis * Consult general surgery evaluation no need for any surgical intervention recommended consult GI * Full liquid advance as tolerated * IV fluids * Encourage activity * Holding Tirzepatide * Serial imaging * GI consulted to evaluate for inpatient or outpatient gastric emptying studies (3) CHATA (acute kidney injury): Code(s): N17.9 - Acute kidney failure, unspecified Status: Acute Assessment and Plan: This is acute on chronic. Stage III renal disease. Most likely secondary to dehydration with the nausea and poor appetite. Initially his creatinine was 2.09 and is down to 1.47 with fluids. And this is his baseline. 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 * tirzepatide is on hold * Hypoglycemic protocol (6) Hyperlipidemia due to dietary fat intake: Code(s): E78.49 - Other hyperlipidemia Status: Acute Assessment and Plan: * continue with atorvastatin (7) Essential (primary) hypertension: Code(s): I10 - Essential (primary) hypertension Status: Acute Assessment and Plan: * Will resume patient's carvedilol, amlodipine and losartan once tolerating oral intake * Monitor BP per unit protocol Plan Code status: Full code per patient DVT prophylaxis: SCDs Stress ulcer prophylaxis: NA PT/OT notes: Ambulatory Disposition: Patient continues admission for acute pancreatitis and ileus and possible gastroparesis GI consulted for any further recommendations. Patient to discharge to home when medically stable Time Spent With Patient Time with patient: 15 - 25 minutes Subjective Date/time seen: 06/10/25 12:24 Interval history: Patient is a 70-year-old male admitted for further evaluation and treatment acute pancreatitis and hypokalemia, CHATA, possible SBO versus ileus. 06/10/2025: Patient comfortable tolerate advanced diet, Denies any N/V minimal ABD discomfort and reports flatulence and BM. Small bowel follow-through more consistent with ileus which appears to resolved however some concern for Gastroparesis GI consulted. Review of Systems Review of Systems: All systems reviewed & are unremarkable except as noted in HPI and below Exam Const: General: comfortable and no acute distress HENMT: Ears: TM's normal bilaterally Face/Nose/Sinus: Normal nares present Mouth: Yes moist mucous membranes Eyes: General: appearance normal, both eyes and all related structures Sclera: sclerae normal Pupils: Equal, round and reactive pupils present Neck: Neck: supple and no JVD Resp: Effort & Inspection: normal respiratory effort Auscultation: clear to auscultation bilaterally Cardio: Rate: regular rate Rhythm: regular rhythm GI: Auscultation: abnormal bowel sounds (Hypoactive) Skin: General skin exam: normal color and no rashes or lesions noted Wounds: no wounds Neuro: General: gait normal Cranial nerves: Yes Equal, round and reactive pupils present Speech: normal speech Motor exam (neuro): 5/5 motor strength present throughout Sensory Exam: normal sensation Extrem: General: normal to inspection Psych: Mental Status: mental status grossly normal Affect: normal affect Objective Data Vital Signs Vital Signs: Vital Signs - 24 hr 06/09/25 16:00 06/09/25 16:00 06/09/25 20:00 Temperature 97.1 F L 98.6 F Pulse Rate 86 88 91 Respiratory Rate 18 16 Blood Pressure 162/106 H 130/83 Pulse Oximetry 100 98 Oxygen Delivery 06/09/25 20:00 06/09/25 20:00 06/09/25 21:07 Temperature Pulse Rate 94 72 Respiratory Rate Blood Pressure Pulse Oximetry Oxygen Delivery Room Air 06/09/25 22:00 06/10/25 00:00 06/10/25 00:00 Temperature 98.6 F 98.2 F Pulse Rate 91 79 81 Respiratory Rate 16 16 Blood Pressure 130/83 130/95 H Pulse Oximetry 98 100 Oxygen Delivery 06/10/25 04:00 06/10/25 04:00 06/10/25 06:00 Temperature 98.1 F 98.1 F Pulse Rate 78 81 81 Respiratory Rate 16 16 Blood Pressure 118/86 118/86 Pulse Oximetry 100 100 Oxygen Delivery 06/10/25 08:00 06/10/25 08:00 06/10/25 08:10 Temperature 97.8 F Pulse Rate 91 88 Respiratory Rate 17 Blood Pressure 133/87 Pulse Oximetry 100 Oxygen Delivery Room Air 06/10/25 08:14 06/10/25 12:13 Temperature Pulse Rate 91 79 Respiratory Rate Blood Pressure 111/79 Pulse Oximetry Oxygen Delivery Intake/Output Intake/Output: Intake & Output 06/07/25 06/08/25 06/09/25 06/10/25 23:59 23:59 23:59 23:59 Intake Total 1000 1650 2291.7 760 Output Total 750 1100 400 Balance 0816 777 9598.7 360 Meds/Results Medications: Active Medications Generic Name Dose Route Start Last Admin Trade Name Freq PRN Reason Stop Dose Admin Amlodipine Besylate 10 mg 06/08/25 09:00 06/10/25 08:14 Amlodipine Besylate 10 Mg Tablet PO 10 mg DAILY MEG Administration Atorvastatin Calcium 10 mg 06/08/25 21:00 06/09/25 21:08 Atorvastatin 10 Mg Tablet PO 10 mg QHS MEG Administration Carvedilol 25 mg 06/08/25 09:00 06/10/25 08:14 Carvedilol 25 Mg Tablet PO 25 mg Q12HR MEG Administration Dextrose 12.5 gm 06/08/25 01:31 Dextrose 50% 25 Gm/50 Ml Syringe IV PUSH PRN PRN Hypoglycemia Protocol Glucagon 1 mg 06/08/25 01:31 Glucagon For Inj 1 Mg Vial IM PRN PRN Hypoglycemia Protocol Glucose 15 gm 06/08/25 01:31 Glucose Oral Gel 15 Gm Of Glucse In 37.5 Gm Tube PO PRN PRN Hypoglycemia Protocol Hydralazine HCl 10 mg 06/07/25 21:48 06/08/25 20:51 Hydralazine Hcl 20 Mg/Ml Vial IV PUSH 10 mg Q8H PRN Administration Blood Pressure - High Hydralazine HCl 100 mg 06/09/25 17:00 06/10/25 12:14 Hydralazine Hcl 50 Mg Tablet PO 100 mg TID MEG Administration Hydromorphone HCl 0.5 mg 06/08/25 12:38 Hydromorphone Hcl Inj (*Crx) 1 Mg/Ml Syr IV PUSH Q3H PRN Pain Rated 7-10 Dextrose 1,000 mls @ 100 mls/hr 06/08/25 01:31 Dextrose 5% 1,000 Ml IVPB PRN PRN Hypoglycemia Protocol Sodium Chloride 1,000 mls @ 100 mls/hr 06/08/25 02:35 06/09/25 21:09 Normal Saline Iv IV CONT 100 mls/hr .Q10H MEG Administration Insulin Aspart 2 - 5 units 06/08/25 08:00 06/10/25 11:37 Insulin Aspart (*Bkc) 100 Units/Ml SUB-Q Not Given TIDWM [facility] Protocol Losartan Potassium 100 mg 06/10/25 09:00 06/10/25 08:14 Losartan Potassium 100 Mg Tablet PO 100 mg DAILY MEG Administration Ondansetron HCl 4 mg 06/07/25 21:52 06/08/25 20:51 Ondansetron Inj 4 Mg/2 Ml Vial IV PUSH 4 mg Q4H PRN Administration Nausea And Vomiting Potassium Chloride 40 meq 06/10/25 09:00 06/10/25 08:14 Potassium Chloride 20 Meq Er Tablet PO 40 meq DAILY MEG Administration Radiology Results: ITS Impressions Chest X-Ray 06/07/25 19:03 IMPRESSION: No acute findings. Abdomen/Pelvis CT 06/07/25 20:19 IMPRESSION: 1. Dilated proximal small bowel loops with air-fluid levels and decompressed distal small bowel. No definitive transition site identified. Findings compatible with small bowel obstruction or ileus. Consider correlation with smal l bowel follow-through. 2: Reticulonodular densities of the lower lobes and right middle lobe, suspicious for infection. Small Bowel X-Ray 06/08/25 16:47 IMPRESSION: 1. Delayed gastric emptying suggestive of gastroparesis. 2. Mild delay in contrast progression through otherwise diffusely normal appearing caliber small bowel which would be more consistent with ileus than obstruction. Labs Labs: Laboratory Results - last 24 hr 06/09/25 06/09/25 06/09/25 16:45 20:20 21:14 WBC RBC Hgb Hct MCV MCH MCHC RDW Plt Count MPV % Immature Plt Fraction Sodium Potassium 3.2 L Chloride Carbon Dioxide Anion Gap BUN Creatinine Estim Creat Clear Calc Estimated GFR Glucose POC Capillary Glucose 166 H 167 H Calcium Phosphorus 2.6 Magnesium Total Bilirubin AST ALT Alkaline Phosphatase Total Protein Albumin Lipase 06/10/25 06/10/25 06/10/25 06:27 07:32 11:25 WBC 5.5 RBC 5.51 Hgb 11.6 L Hct 37.5 L MCV 68.1 L MCH 21.1 L MCHC 30.9 L RDW 16.8 H Plt Count 167 MPV TNP % Immature Plt Fraction 10.3 Sodium 135 L Potassium 3.2 L Chloride 100 Carbon Dioxide 25 Anion Gap 10 BUN 29 H Creatinine 1.50 H Estim Creat Clear Calc 43 Estimated GFR 46 L Glucose 235 H POC Capillary Glucose 257 H 178 H Calcium 9.1 Phosphorus Magnesium 1.9 Total Bilirubin 1.0 AST 20 ALT 15 Alkaline Phosphatase 40 Total Protein 7.1 Albumin 3.9 Lipase 650 H Quality VTE Prophylaxis VTE prophylaxis: mechanical ordered -Patient's previous records reviewed on admission -ER notes reviewed in detail on admission -discussed all findings and current treatment plan with patient/Family/POA -Consultations reviewed for recommendations -Patient's disposition for safe discharge discussed with director of casework department -radiology imaging, EKG and test results I have personally reviewed and interpr eted unless otherwise specified Dictation performed by [employer] direct speech recognition software, therefore accounts manager variants and typographical errors may occur. Hospitalist MIPS Advance Care Plan I have confirmed that the patient's Advanced Care Plan is present, code status is documented, or surrogate decision maker is listed in patient medical record.: Yes Medication Reconciliation I have utilized all available resources to obtain, update and review the p atients current medications (includes all prescriptions, OTC, herbals, cannabis, and nutritional supplements).: Yes The patient is not eligible for med reconciliation; the patient is in a emergent medical situation where delaying treatment would jeopardize the patients health.: No
--- NOTE | 2025-06-10 12:34 | P.DS_ITS ---
DS: Admitting Diagnosis Discharge Date 06/10/2025 Admitting Diagnosis acute pancreatitis/ SBO versus ileus DS: Discharge Diagnosis Discharge Diagnosis (1) Pancreatitis: Qualifiers: Acute pancreatitis complication: unspecified Chronicity: acute Pancreatitis type: drug induced Qualified Code(s): K85.30 - Drug induced acute pancreatitis without necrosis or infection Code(s): K85.90 - Acute pancreatitis without necrosis or infection, unspecified Status: Acute (2) Ileus: Code(s): K56.7 - Ileus, unspecified Status: Acute (3) CHATA (acute kidney injury): Code(s): N17.9 - Acute kidney failure, unspecified Status: Acute (4) Acute hypokalemia: Code(s): E87.6 - Hypokalemia Status: Acute (5) Type 2 diabetes mellitus without complications: Code(s): E11.9 - Type 2 diabetes mellitus without complications Status: Acute (6) Hyperlipidemia due to dietary fat intake: Code(s): E78.49 - Other hyperlipidemia Status: Acute (7) Essential (primary) hypertension: Code(s): I10 - Essential (primary) hypertension Status: Acute DS: Summary Hospital Course Reason for hospitalization: acute pancreatitis/ SBO versus ileus Hospital Course: Admission: Patient was a 70-year-old patient who has a history of diabetes, hypertension and chronic kidney disease. The patient has been complaining of weakness and nausea. The patient has been on tirzapatide for several months. He stated that he has lost a significant amount of weight over 40 lb. However over the last 4 days he has had nausea with a few episodes of vomiting. The patient had difficulty walking secondary to extreme weakness. He has had a decreased appetite. He feels constipated. He initially had some urinary symptoms but they have resolved since then. In the ED: His sodium was noted to be 135, potassium 2.9, chloride 92, carbon dioxide 32, BUN 41 and creatinine 2.09. Previous BUN had been 23 and creatinine had been 1.57. His current GFR is 32 with a previous value of 44 to 47. Glucose is 177. BNP 134. Lipase is 2055. Viral serology is negative. Chest x-ray was read as no acute findings. Abdominal pelvis CT was read as a following1. Dilated proximal small bowel loops with air-fluid levels and decompressed distal small bowel. No definitive transition site identified. Findings compatible with small bowel obstruction or ileus. Consider correlation with small bowel follow- through. 2: Reticulonodular densities of the lower lobes and right middle lobe, suspicious for infection. The patient was given 2 L of IV boluses, Zofran, and p.o. potassium. The patient is being admitted to inpatient status on 06/07/2025. Hospital Course: patient admitted to the medical unit and started on IV fluids, pain management and bowel rest due to acute pancreatitis however CT abdomen did show some possible findings for SBO versus ileus at which time I did consult General surgery for further evaluation recommendations. Patient did have a small bowel follow-through which indicated ileus but had resolved and possible gastroparesis. slowly advance patient's diet as tolerated initially he was only having flatulence and no BMs. On day of discharge patient had multiple BMs and continue pass gas. patient had no further nausea or vomiting and was tolerating advance diet. I did speak to GI about possible gastric emptying series which can be performed outpatient. lipase down to 600 on time of discharge encourage continued oral hydration and to continue to advance diet as tolerated. Patient seen assessed a discharge in no acute distress with no complaints. Patient was discharged home aware he will need to hold his tirzepatide and follow up with his primary care physician for diabetes management. Status at Discharge Functional status at discharge: independent ambulation Overall status at discharge: patient is back to baseline Time Spent with Patient Time attestation: Total time spent providing and/or coordinating discharge services: Time spent: Greater than 30 minutes Exam Const: General: comfortable and no acute distress HENMT: Ears: TM's normal bilaterally Face/Nose/Sinus: Normal nares present Mouth: Yes moist mucous membranes Eyes: General: appearance normal, both eyes and all related structures Sclera: sclerae normal Pupils: Equal, round and reactive pupils present Neck: Neck: supple and no JVD Resp: Effort & Inspection: normal respiratory effort Auscultation: clear to auscultation bilaterally Cardio: Rate: regular rate Rhythm: regular rhythm GI: Auscultation: abnormal bowel sounds (Hypoactive) Skin: General skin exam: normal color and no rashes or lesions noted Wounds: no wounds Neuro: General: gait normal Cranial nerves: Yes Equal, round and reactive pupils present Speech: normal speech Motor exam (neuro): 5/5 motor strength present throughout Sensory Exam: normal sensation Extrem: General: normal to inspection Psych: Mental Status: mental status grossly normal Affect: normal affect DS: Data Data Completed and Pending Labs on day of discharge: Labs from last 24 hours 06/10/25 06/10/25 06/10/25 11:25 07:32 06:27 WBC 5.5 RBC 5.51 Hgb 11.6 L Hct 37.5 L MCV 68.1 L MCH 21.1 L MCHC 30.9 L RDW 16.8 H Plt Count 167 MPV TNP % Immature Plt Fraction 10.3 Sodium 135 L Potassium 3.2 L Chloride 100 Carbon Dioxide 25 Anion Gap 10 BUN 29 H Creatinine 1.50 H Estim Creat Clear Calc 43 Estimated GFR 46 L Glucose 235 H POC Capillary Glucose 178 H 257 H Calcium 9.1 Phosphorus Magnesium 1.9 Total Bilirubin 1.0 AST 20 ALT 15 Alkaline Phosphatase 40 Total Protein 7.1 Albumin 3.9 Lipase 650 H 06/09/25 06/09/25 06/09/25 21:14 20:20 16:45 WBC RBC Hgb Hct MCV MCH MCHC RDW Plt Count MPV % Immature Plt Fraction Sodium Potassium 3.2 L Chloride Carbon Dioxide Anion Gap BUN Creatinine Estim Creat Clear Calc Estimated GFR Glucose POC Capillary Glucose 167 H 166 H Calcium Phosphorus 2.6 Magnesium Total Bilirubin AST ALT Alkaline Phosphatase Total Protein Albumin Lipase Imaging Radiologist's impression: Radiology Results: ITS Impressions Chest X-Ray 06/07/25 19:03 IMPRESSION: No acute findings. Abdomen/Pelvis CT 06/07/25 20:19 IMPRESSION: 1. Dilated proximal small bowel loops with air-fluid levels and decompressed distal small bowel. No definitive transition site identified. Findings compatible with small bowel obstruction or ileus. Consider correlation with small bowel follow-through. 2: Reticulonodular densities of the lower lobes and right middle lobe, suspicious for infection. Small Bowel X-Ray 06/08/25 16:47 IMPRESSION: 1. Delayed gastric emptying suggestive of gastroparesis. 2. Mild delay in contrast progression through otherwise diffusely normal appearing caliber small bowel which would be more consistent with ileus than obstruction. Discharge Plan Discharge Attending physician on discharge: Ab Parra Oca Consulting providers: Ely Gómez Discharging Clinician: Ely Gómez Anticipated Discharge Date/Time: 06/10/25 12:41 Patient Disposition: Home Activity: may shower and as tolerated Diet: as tolerated Discharge Instructions: 1). acute pancreatitis/ ileus/ gastroparesis * recommend to continue to hold your tirzepatide and follow up with your primary care physician for diabetes management * you will need follow up outpatient with GI physician information has been provided for possible gastroparesis * encourage oral hydration and activity * if symptoms return or worsen please seek medical attention How can you care for yourself at home? ? Keep track of any new symptoms or changes in your symptoms. ? Rest until you feel better. ? Be safe with medicines. Take your medicines exactly as prescribed. Call your doctor if you think you are having a problem with your medicine. ? Do not drive after taking a prescription pain medicine. ? Ensure to follow-up with primary care physician as indicated and provide updated medication list provided to you at discharge. When should you call for help? Call 911 anytime you think you may need emergency care. For example, call if: ? You passed out (lost consciousness). Call your doctor now or seek immediate medical care if: ? You have new symptoms like fever, difficulty breathing, Chest pain, vomiting, or rash. ? You have new or different pain. ? You are confused and are having trouble thinking clearly. ? Your symptoms are getting worse. Watch closely for changes in your health, and be sure to contact your doctor if: ? You do not get better as expected. Patient Instructions: Antibiotic Form, Pancreatitis (DC), Ileus (DC), Gastroparesis (DC) Patient Language: Chinese Stand Alone Forms: General Discharge Information Follow-up/Referrals: Azeb Aceves MD [Primary Care Provider, Family Practice] - 1 Week Referral Note: Need adjustment to diabetes medication Gorge Jones MD [Physician, Gastroenterology] - Call for Appointment Referral Note: Will need gastric empty studies Discharge Medications: Continued carvedilol 25 mg tablet 25 mg PO BID losartan-hydrochlorothiazide 100-25 mg tablet 1 tablet PO DAILY Qty: 90 1RF potassium chloride 10 mEq capsule, extended release 10 meq PO DAILY Qty: 90 1RF (DME) blood-glucose meter [OneTouch Ultra2 Meter] Misc See Rx Instructions .Route Qty: 1 0RF Rx Instructions: useAs directed (DME) OneTouch Ultra Test Strip See Rx Instructions .Route Qty: 100 3RF Rx Instructions: check blood sugars q.dayAs directed (DME) lancets [OneTouch UltraSoft 2 Lancet] 30 gauge misc See Rx Instructions .Route Qty: 100 3RF Rx Instructions: check blood sugars q.dayAs directed cholecalciferol (vitamin D3) 50 mcg (2,000 unit) tablet 50 mcg PO DAILY Qty: 90 1RF hydralazine 100 mg tablet 100 mg PO TID Qty: 270 1RF metformin 500 mg tablet extended release 24 hr 1,000 mg PO DAILY Qty: 180 1RF amlodipine 10 mg tablet 10 mg PO DAILY Qty: 90 1RF cyanocobalamin (vitamin B-12) 1,000 mcg tablet, sublingual 1,000 mcg PO DAILY Qty: 90 1RF atorvastatin [Lipitor] 10 mg tablet 10 mg PO QHS Qty: 90 1RF ondansetron 8 mg tablet,disintegrating 8 mg PO Q8H PRN (Reason: nausea and vomiting) Qty: 15 0RF Discontinued Mounjaro 10 mg/0.5 mL pen injector 10 mg subcut WEEKLY Qty: 2 0RF Date of admission: 06/07/25 20:45 Primary Care Provider: Azeb Aceves Admitting Provider: Danni Lauren Attending physician on admission: Danni Lauren Condition: Stable Quality VTE Prophylaxis VTE prophylaxis: mechanical ordered -Patient's previous records reviewed on admission -ER notes reviewed in detail on admission -discussed all findings and current treatment plan with patient/Family/POA -Consultations reviewed for recommendations -Patient's disposition for safe discharge discussed with senior case manager -radiology imaging, EKG and test results I have personally reviewed and interpreted unless otherwise specified Dictation performed by [employer] direct speech recognition software, therefore cake froster variants and typographical errors may occur. Hospitalist MIPS Heart Failure (Exclusion) Patient has history of Heart Transplant or Left Ventricular Assistive Device?: N o IF YES, STOP HERE Heart Failure (Qualifier) Patient has current or prior documentation of LVEF less than or equal to 40%, or mod/servere depressed LVSF?: No IF NO, STOP HERE
== END 2025-06-10 13:30 | disposition home or self-care (01) | DRG 439 ==
LOC: ANHED 18:59 → ANH3MEDSUR 22:47
PROVIDERS: General Practice; Internal Medicine; Nurse Practitioner; Admitting Provider Internal Medicine; Emergency Provider Student in an Organized Health Care Education/Training Program; PCP Family Medicine; Visit Provider Nurse Practitioner Family
DX: K85.30 Drug induced acute pancreatitis without necrosis or infection (principal); E87.1 Hypo-osmolality and hyponatremia; N17.9 Acute kidney failure, unspecified; K56.7 Ileus, unspecified; I12.9 Hypertensive chronic kidney disease with stage 1 through stage 4 chronic kidney disease, or unspecified chronic kidney disease; N18.30 Chronic kidney disease, stage 3 unspecified; E11.22 Type 2 diabetes mellitus with diabetic chronic kidney disease; E87.6 Hypokalemia; E53.8 Deficiency of other specified B group vitamins; E55.9 Vitamin D deficiency, unspecified; E78.5 Hyperlipidemia, unspecified; G25.2 Other specified forms of tremor; F32.A Depression, unspecified; T38.3X5A Adverse effect of insulin and oral hypoglycemic [antidiabetic] drugs, initial encounter; Z20.822 Contact with and (suspected) exposure to COVID-19
CPT/HCPCS: 36415; 71045; 74176; 74250; 80048; 80053; 80061; 82948; 83036; 83690; 83735; 83880; 84100; 84132; 84484; 85025; 85027; 85055; 87637; 93005; 96361; 96374; 99285; A9270; J0360; J1815; J2405; J3480; J7030; J7040

== ENCOUNTER 2025-06-14 14:54 | Outpatient (CLI) | payer OTHER, SELFPAY ==
--- OUTSIDE RECORDS SUMMARY | 2025-06-14 15:45 | XMS_ITS | Clinical Summary ---
Author Organization [facility] Address [address] [place] [address] Care Team Providers Care Electrotherapist Name Role Phone Faraz Mortensen MD Primary Care Provider [phone] Allergies No known active allergies Social History [...] topic Insurance MEDICARE PART A Care Teams Electrotherapist Relationship Specialty Start Date End Date Faraz Mortensen MD [address] [place] [address] PCP - General FAMILY PRACTICE 11/12/20
--- OUTSIDE RECORDS SUMMARY | 2025-06-14 15:45 | XMS_ITS | Clinical Summary ---
Author Organization [facility] Address [address] [place] [id number] Phone Care Team Providers Care Honing Machine Try Out Setter Name Role Phone Nader Aceves MD Primary [...] 1 Active Cholecalciferol (Vitamin D3) 1.25 MG (00787 UT) capsule Take 1 capsule by mouth [...] on file Legal Sex Male 2:33 PM [employer] Gender Identity Not on file Sexual Orientation [...] (#1) 2025 07/10/2020 Insurance [employer] H[employer] Care Teams Honing Machine Try Out Setter Relationship Specialty Start Date End Date Nader Aceves MD [address] [place], [place] [id number] PCP - General Internal Medicine 11/11/21
[2025-06-14 16:19] LABS: Anion Gap 8 mmol/L (4-12); Blood Urea Nitrogen 41 mg/dL (9-20); Calcium 9.2 mg/dL (8.4-10.2); Carbon Dioxide 28 mmol/L (22-30); Chloride 103 mmol/L (98-107); Estimated Glomerular Filt Rate 40; Glucose 159 mg/dL (65-110); Lipase 582 U/L (23-300); Potassium 3.5 mmol/L (3.4-5.0); Sodium 139 mmol/L (137-145)
== END 2025-06-14 14:55 | disposition home or self-care (01) ==
LOC: ANHGOSHLAB 14:55
PROVIDERS: PCP Family Medicine; Visit Provider Family Medicine
DX: E87.6 Hypokalemia (principal); K85.30 Drug induced acute pancreatitis without necrosis or infection
CPT/HCPCS: 36415; 80048; 83690

== ENCOUNTER 2025-06-28 13:49 | Outpatient (CLI) | payer OTHER, SELFPAY ==
--- OUTSIDE RECORDS SUMMARY | 2025-06-28 13:53 | XMS_ITS | Clinical Summary ---
Author Organization [facility] Address [address] [place] [phone] Phone Care Team Providers Care Aircraft Life Support Fitter Name Role Phone Nader Aceves MD Primary [...] 1 Active Cholecalciferol (Vitamin D3) 1.25 MG (44139 UT) capsule Take 1 capsule by mouth [...] on file Legal Sex Male 2:33 PM [facility] Gender Identity Not on file Sexual Orientation [...] 07/10/2020 Insurance [employer] H[employer] Care Teams Aircraft Life Support Fitter Relationship Specialty Start Date End Date Nader Aceves MD [address] [place], [place] [phone] PCP - General Internal Medicine 11/11/21
--- OUTSIDE RECORDS SUMMARY | 2025-06-28 13:53 | XMS_ITS | Clinical Summary ---
Author Organization [facility] Address [address] [place] [address] Care Team Providers Care Operations Superintendent Name Role Phone Faraz Mortensen MD Primary Care Provider [phone] Allergies No known active allergies Social History [...] topic Insurance MEDICARE PART A Care Teams Operations Superintendent Relationship Specialty Start Date End Date Faraz Mortensen MD [address] [place] [address] PCP - General FAMILY PRACTICE 11/12/20
[2025-06-28 18:25] LABS: Lipase 339 U/L (23-300)
== END 2025-06-28 13:50 | disposition home or self-care (01) ==
LOC: ANHGOSHLAB 13:50
PROVIDERS: PCP Family Medicine; Visit Provider Family Medicine
DX: K85.30 Drug induced acute pancreatitis without necrosis or infection (principal)
CPT/HCPCS: 36415; 83690